=== PATIENT | female | born 1945 | race Caucasian/White ===

== ENCOUNTER 2021-10-04 12:36 | Outpatient (CLI) | payer MEDICARE, BC, SELFPAY | END 2021-10-04 12:37 | disposition home or self-care (01) | PROVIDERS: Visit Provider Family Medicine | DX: H90.3 Sensorineural hearing loss, bilateral (principal) | CPT/HCPCS: 92557; 92567 ==

== ENCOUNTER 2021-10-09 12:36 | Outpatient (CLI) | payer MEDICARE, BC, SELFPAY ==
--- NOTE | 2021-10-10 08:55 | WPDPFTINT ---
PFT Procedure Performed PFT Procedure Performed Plethysmography (Lung Vol) Diffusing Cap (DLCO) Flow Vol Loop Spirometry w/o Bronchodil PFT Interpretation Lung volumes were measured with the body plethysmography method. Lung volumes are unremarkable. Spirometry showed diminished expiratory flow rates and a diminished FEV1 to FVC ratio of 60%, consistent with obstructive airway disease. No post bronchodilator study was carried out. Lung diffusion capacity is moderately reduced at 55% predicted. The flow volume loop is consistent with obstructive airway disease. Impression: Mild obstructive airway disease. Moderately reduced lung diffusion capacity.
== END 2021-10-09 12:37 | disposition home or self-care (01) ==
LOC: ANHPFT 12:40
PROVIDERS: Visit Provider Family Medicine
DX: J44.9 Chronic obstructive pulmonary disease, unspecified (principal); R94.2 Abnormal results of pulmonary function studies
CPT/HCPCS: 94375; 94726; 94729

== ENCOUNTER 2021-11-08 11:00 | Outpatient (RCR) | payer MEDICARE, BC, SELFPAY | END 2022-01-17 23:59 | disposition home or self-care (01) | LOC: ANHAUDASC 11:00 | DX: Z46.1 Encounter for fitting and adjustment of hearing aid (principal) | CPT/HCPCS: 99199; V5261 ==

== ENCOUNTER → 2022-06-14 11:00 | Outpatient (CLI) | payer MEDICARE, BC, SELFPAY ==
--- NOTE | ~2022-06-14 | DEXA_ITS ---
Bone Density Report Name: YADIRA GILBERT Age: 76 Sex: Female Ethnicity: White Date of : 1945 Indication: osteopenia; height loss; postmenopausal Referring Provider: QUE CRISTINA Study: Bone densitometry was performed. Exam Date: June 14, 2022 Accession number: [id number] Bone Density: Region BMD T-score Z-score Classification AP Spine (L1, L4) 1.059 0.2 2.7 Normal Femoral Neck (Left) 0.654 -1.8 0.4 Osteopenia Total Hip (Left) 0.790 -1.2 0.7 Osteopenia Femoral Neck (Right) 0.663 -1.7 0.5 Osteopenia Total Hip (Right) 0.860 -0.7 1.3 Normal Total Hip Mean 0.825 -1.0 1.0 Normal World Health Organization criteria for BMD impression classify patients as: Normal (T-score at or above -1.0), Osteopenia (T-score between -1.0 and -2.5), or Osteoporosis (T-score at or below -2.5). 10-year Fracture Risk(1): Major Osteoporotic Fracture 13% Hip Fracture 3.2% Reported Risk Factors: [place] (), Neck BMD=0.654, BMI=29.0 (1) FRAX(R) Version 3.08. Fracture probability calculated for an untreated patient. Fracture probability may be lower if the patient has received treatment. Previous Exams: Region Exam Age BMD T-score BMD Change BMD Change Date g/cm2 vs Baseline vs Previous AP Spine(L1, L4) 06/14/2022 76 1.059 0.2 -0.042 -0.053* 09/10/2019 73 1.112 0.7 0.011 0.111* 07/06/2014 68 1.001 -0.3 -0.100 -0.010 06/24/2012 66 1.011 -0.2 -0.090 -0.020 05/19/2010 64 1.030 -0.1 -0.071 0.054* 05/07/2008 62 0.977 -0.5 -0.124 -0.004 04/30/2006 60 0.981 -0.5 -0.120 -0.120 05/04/2003 57 1.101 0.6 Total Hip(Left) 06/14/2022 76 0.790 -1.2 -0.077 -0.001 09/10/2019 73 0.790 -1.2 -0.077 0.030* 07/06/2014 68 0.760 -1.5 -0.107 0.004 06/24/2012 66 0.756 -1.5 -0.111 -0.034* 05/19/2010 64 0.791 -1.2 -0.076 0.031* 05/07/2008 62 0.760 -1.5 -0.107 -0.032* 04/30/2006 60 0.792 -1.2 -0.075 -0.075 05/04/2003 57 0.867 -0.6 Total Hip(Right) 06/14/2022 76 0.860 -0.7 0.006 0.014 09/10/2019 73 0.846 -0.8 -0.009 0.025 07/06/2014 68 0.821 -1.0 -0.034 0.056* 06/24/2012 66 0.764 -1.5 -0.090 -0.028* 05/19/2010 64 0.793 -1.2 -0.062 0.037* 05/07/2008 62 0.755 -1.5 -0.099 -0.062* 04/30/2006 60 0.818 -1.0 -0
--- NOTE | ~2022-06-14 | MM_ITS ---
EXAMINATION: MM screening [facility] BI w shamika HISTORY: Screening TECHNIQUE: Craniocaudal and mediolateral oblique 3-D tomosynthesis images were obtained and synthetic 2-D images were generated. CAD analysis was submitted and interpreted. COMPARISON: Comparison to multiple prior studies sequentially, with oldest reviewed study dated 07/06. BREAST PARENCHYMAL COMPOSITION: There are scattered areas of fibroglandular density. FINDINGS: Stable benign-appearing left calcifications in the area of previous benign biopsy. There is no evidence of suspicious mass, calcification, or architectural distortion to suggest malignancy in either breast. There has been no suspicious interval change. IMPRESSION: 1. No mammographic evidence of malignancy. 2. Recommend routine screening mammography in one year. BI-RADS Category 2: Benign finding(s). Reviewed, dictated and finalized at location A.
== END ==
PROVIDERS: PCP Family Medicine; Visit Provider Obstetrics & Gynecology
DX: Z12.31 Encounter for screening mammogram for malignant neoplasm of breast (principal); Z78.0 Asymptomatic menopausal state; M85.852 Other specified disorders of bone density and structure, left thigh; M85.851 Other specified disorders of bone density and structure, right thigh
CPT/HCPCS: 77063; 77067; 77080

== ENCOUNTER 2023-02-06 12:29 | Outpatient (CLI) | payer MEDICARE, BC, SELFPAY ==
[2023-02-06 13:28] LABS: NT Pro B Type Natriuretic Pept 87 pg/mL (19.9-100)
[2023-02-08 12:19] LABS: NIL 0.28 IU/mL; Quantiferon TB Plus, 1T NEGATIVE (NEGATIVE); TB1-NIL 0.05 IU/mL
[2023-02-08 21:14] LABS: Immunoglobulin G, Serum 950 mg/dL (600-1540); Immunoglobulin G1 637 mg/dL (382-929); Immunoglobulin G2 218 mg/dL (241-700); Immunoglobulin G3 68 mg/dL (22-178); Immunoglobulin G4 22.8 mg/dL (4.0-86.0)
--- NOTE | 2023-02-10 12:01 | WPDSIXMINUTE ---
Six Minute Walk Procedure Procedure Performed Pulmonary Stress Test (6 min walk) Six Minute Walk Six Minute Walk: This is a 6 minute walk test. The test was performed and interpreted in accordance with the 2014 ERS/ATS task force guidelines. Findings: The patient's resting room air oxygen saturation measured by pulse oximetry was 94% and heart rate was 82 bpm. Patient ambulated for 579 meters and oxygen saturation remained 89 to 96%. Heart rate at the end of the study was 127 bpm. The patient did not qualify for supplemental oxygen at rest or with ambulation. There are no prior studies for comparison.
--- NOTE | 2023-02-10 12:02 | WPDPFTINT ---
PFT Procedure Performed PFT Procedure Performed Spirometry with Pre/Post Bronchodilator Plethysmography (Lung Vol) Diffusing Cap (DLCO) Flow Vol Loop PFT Interpretation This is a pulmonary function test with pre and post-bronchodilator spirometry, plethysmography and diffusing capacity. The test was performed and results interpreted in accordance with the 2019 and 2005 ATS/ERS Task Force guidelines respectively using the Global Lung Function Initiative-2012 reference equations. Patient demonstrated good effort and cooperation. Reproducibility criteria were met. The quality of the pre bronchodilator spirometry maneuver was Grade A and post bronchodilator spirometry maneuver was Grade A. Findings: Spirometry: there is decreased maximal expiratory airflow at all lung volumes with concave expiratory flow tracing. The contour the inspiratory flow tracing is normal. The pre bronchodilator FVC is 2.38 L, 107% predicted. The pre bronchodilator FEV1 is 1.36 L, 79% predicted. The pre bronchodilator FEV1: FVC ratio is 57%. The post bronchodilator FVC is 2.63 L, representing a 10% increase. The post bronchodilator FEV1 is 1.49 L, representing a 9% increase. The post bronchodilator FEV1: FVC ratio is 57%. Plethysmography: The total lung capacity is 5.02 L, 113% predicted. The functional residual capacity is 3.18 L, 126% predicted. The residual volume is 2.44 L, 114% predicted. Diffusion capacity: The diffusing capacity unadjusted for hemoglobin and carboxyhemoglobin is 21.4, 119% predicted. The diffusing capacity adjusted for alveolar volume is 3.45, 79% predicted. In comparison to previous pulmonary function testing on 10/09/2021 in which only a pre bronchodilator spirometry was performed the pre bronchodilator FVC is unchanged from 2.11 L to 2.38 L. The pre bronchodilator FEV1 is unchanged from 1.26 L to 1.36 L. The total lung capacity is unchanged from 4.98 L to 5.02 L. The functional residual capacity is unchanged from 3.31 L to 3.18 L. The residual volume is unchanged from 2.16 L to 2.44 L. The diffusing capacity unadjusted for hemoglobin and carboxyhemoglobin is increased from 10.0 to 21.4. The diffusing capacity adjusted for alveolar volume is unchanged from 3.15 to 3.45 Impression: There is a mild obstructive abnormality with a normal FEV1 and without significant improvement after inhaling a single dose of albuterol. the lung volumes are normal. The diffusing capacity is normal. In comparison to previous pulmonary function test on 10/09/2021 there has been a greater than anticipated time dependent increase in the diffusing capacity unadjusted for hemoglobin and carboxyhemoglobin with no significant change in the FVC, FEV1, total lung capacity, functional residual capacity, residual volume or diffusing capacity adjusted for alveolar volume. Clinical correlation is recommended.
[2023-02-10 21:04] LABS: Immunoglobulin E 247 kU/L (<=114)
== END 2023-02-06 12:30 | disposition home or self-care (01) ==
LOC: ANHPFT 12:41
PROVIDERS: PCP Family Medicine; Visit Provider Nurse Practitioner
DX: J44.9 Chronic obstructive pulmonary disease, unspecified (principal); R06.09 Other forms of dyspnea; R94.2 Abnormal results of pulmonary function studies
CPT/HCPCS: 36415; 82104; 82784; 82785; 82787; 83880; 86003; 86480; 94060; 94618; 94726; 94729

== ENCOUNTER → 2023-08-27 11:13 | Outpatient (CLI) | payer MEDICARE, BC, SELFPAY ==
--- NOTE | ~2023-08-27 | MM_ITS ---
EXAMINATION: MM screening [facility] BI w shamika HISTORY: Screening TECHNIQUE: Craniocaudal and mediolateral oblique 3-D tomosynthesis images were obtained and synthetic 2-D images were generated. CAD analysis was submitted and interpreted. COMPARISON: Comparison to multiple prior studies sequentially, with oldest reviewed study dated 07/28. BREAST PARENCHYMAL COMPOSITION: Breast composed of scattered areas of fibroglandular density FINDINGS: The right breast is stable without evidence for malignancy. There is developing asymmetry i n the upper outer quadrant of the left breast with possible architectural distortion. There are adjac ent tissue markers. IMPRESSION: 1. Developing asymmetry in the upper outer quadrant of the left breast with possible architectural di stortion. 2. Additional mammographic views and possible breast ultrasound are recommended. BI-RADS Category 0: Incomplete: Needs additional imaging evaluation. Reviewed, dictated and finalized at location A. IMPRESSION: 1. Developing asymmetry in the upper outer quadrant of the left breast with pos sible architectural distortion. 2. Additional mammographic views and possible breast ultrasound are recommended . BI-RADS Category 0: Incomplete: Needs additional imaging evaluation.
== END ==
PROVIDERS: PCP Family Medicine; Visit Provider Obstetrics & Gynecology
DX: Z12.31 Encounter for screening mammogram for malignant neoplasm of breast (principal); R92.8 Other abnormal and inconclusive findings on diagnostic imaging of breast
CPT/HCPCS: 77063; 77067

== ENCOUNTER → 2023-09-23 14:14 | Outpatient (CLI) | payer MEDICARE, BC, SELFPAY ==
--- NOTE | ~2023-09-23 | MM_ITS ---
EXAMINATION: MM diagnostic [facility] LT w shamika HISTORY: Focal asymmetry of the left breast on screening mammogram TECHNIQUE: Additional 3-D tomosynthesis images of the left breast were performed and synthetic 2-D im ages were generated. CAD analysis was submitted and interpreted. COMPARISON: 08/27/2023, 06/14/2022, 08/06/2019,01/02/2017, 12/14/2015 FINDINGS: With spot compression, a previously biopsied, chronic focal asymmetry in the upper outer qu adrant of the left breast with internal calcification has a stable appearance. There has been no susp icious interval change. IMPRESSION: 1. No mammographic evidence of malignancy. 2. Recommend routine screening mammography in one year. BI-RADS Category 2: Benign finding(s). Reviewed, dictated and finalized at location A. D CAPTAIN
== END ==
PROVIDERS: PCP Obstetrics & Gynecology; Visit Provider Family Medicine
DX: R92.8 Other abnormal and inconclusive findings on diagnostic imaging of breast (principal)
CPT/HCPCS: 77061; 77065; G0279

== ENCOUNTER 2025-05-06 12:13 | Outpatient (CLI) | payer MEDICARE, BC, SELFPAY ==
--- NOTE | ~2025-05-06 | MM_ITS ---
EXAMINATION: MM screening [facility] BI w shamika HISTORY: Screening mammogram TECHNIQUE: Craniocaudal and mediolateral oblique 3-D tomosynthesis images were obtained and synthetic 2-D images were generated. CAD analysis was submitted and interpreted. COMPARISON: 09/23/2023, 08/27/2023, 06/14/2022, 08/06/2019 BREAST PARENCHYMAL COMPOSITION:Not Dense. There are scattered areas of fibroglandular density. FINDINGS: Increasing 1.4 cm rounded mass present at the upper, outer left breast, at the site of prio r biopsy, possibly seroma. Stable parenchymal appearance of the right breast. No suspicious pelvic ca lcifications. IMPRESSION: Increasing 1.4 cm round mass at the upper, outer left breast. Ultrasound recommended for further eval uation. BI-RADS Category 0: Incomplete: Needs additional imaging evaluation. Reviewed, dictated and finalized at [facility]. IMPRESSION: Increasing 1.4 cm round mass at the upper, outer left breast. Ultrasound recomm ended for further evaluation. BI-RADS Category 0: Incomplete: Needs additional imaging evaluation.
== END 2025-05-06 12:14 | disposition home or self-care (01) ==
LOC: MICIMG 12:14
PROVIDERS: PCP Obstetrics & Gynecology; Visit Provider Obstetrics & Gynecology
DX: Z12.31 Encounter for screening mammogram for malignant neoplasm of breast (principal); R92.8 Other abnormal and inconclusive findings on diagnostic imaging of breast
CPT/HCPCS: 77063; 77067

== ENCOUNTER 2025-05-06 14:00 | Outpatient (CLI) | payer MEDICARE, BC, SELFPAY | END 2025-05-06 14:01 | disposition home or self-care (01) | LOC: ANHAUDASC 14:00 | PROVIDERS: PCP Obstetrics & Gynecology; Visit Provider Nurse Practitioner Family | DX: H90.3 Sensorineural hearing loss, bilateral (principal) | CPT/HCPCS: 92557; 92567 ==

== ENCOUNTER 2025-06-03 09:16 | Outpatient (CLI) | payer MEDICARE, BC, SELFPAY ==
--- NOTE | ~2025-06-03 | US_ITS ---
Examination: US breast LT limited INDICATION: 79-year old female; BI-RADS 0, callback to evaluate enlarging left breast mass. COMPARISON: Mammogram 05/06/2025 and ultrasound 09/11/2013 TECHNIQUE: Targeted ultrasound of the upper outer left breast was completed. FINDINGS: At 2:00, 5 cm from the nipple there is an heterogeneous hypoechoic mass with irregular margins with i nternal vascularity and surrounding echogenic rim measuring 1.9 x 1.6 x 1 cm which correlates to the enlarging mammographic abnormality of concern. IMPRESSION: Suspicious 1.9 cm heterogeneous hypoechoic mass at 2:00 location in the left breast. RECOMMENDATION: Ultrasound-guided core needle biopsy of left breast mass at 2:00. BI-RADS 4, SUSPICIOUS Reviewed, dictated and finalized at location B. IMPRESSION: Suspicious 1.9 cm heterogeneous hypoechoic mass at 2:00 location in the left br east. RECOMMENDATION: Ultrasound-guided core needle biopsy of left breast mass at 2:00. BI-RADS 4, SUSPICIOUS
== END 2025-06-03 09:17 | disposition home or self-care (01) ==
LOC: MICIMG 09:18
PROVIDERS: PCP Obstetrics & Gynecology; Visit Provider Obstetrics & Gynecology
DX: R92.8 Other abnormal and inconclusive findings on diagnostic imaging of breast (principal)
CPT/HCPCS: 76642

== ENCOUNTER 2025-07-08 07:03 | Outpatient (CLI) | payer MEDICARE, BC, SELFPAY ==
--- NOTE | ~2025-07-08 | MMUS_ITS ---
PROCEDURE: MM post biopsy diagnostic LT, US breast biopsy LT w image CLINICAL HISTORY: 79-year-old female with suspicious left breast mass at 2:00 location presents for ultrasound-guided core needle biopsy procedure. COMPARISON: 06/03/2025 Following informed consent including risks, benefits, and possible complications, the patient was brought to the ultrasound suite. A time-out procedure was performed. A preliminary ultrasound of the left breast was performed, redemonstrating a solid irregular shaped hypoechoic mass at 12:00, 5 cm from the nipple which is the target for the biopsy procedure. The patient was prepped and draped in the usual sterile fashion. 1% lidocaine was instilled into the subcutaneous tissues. 1% lidocaine without epinephrine was injected into the deep tissues just inferior to the lesion. Approximately 15cc lidocaine was administered. A small skin lilibeth was made. Multiple core samples were obtained with a 14-gauge multi pass biopsy needle. A post biopsy butterfly hydromark marker was placed at the biopsy site. Postprocedural mammogram of the left breast in craniocaudal and mediolateral projections reveal the post biopsy butterfly hydromark marker in good position. The patient tolerated the procedure well and was without immediate postprocedural complications. IMPRESSION: Successful ultrasound guided biopsy of left breast mass. A post biopsy butterfly hydromark marker was placed at the biopsy site, which is seen on postprocedural mammogram. The patient tolerated the procedure well without immediate postprocedure complications. The patient was given postprocedural instructions and sent home in stable condition. Reviewed, dictated and finalized at location B. IMPRESSION: Successful ultrasound guided biopsy of left breast mass. A post bio psy butterfly hydromark marker was placed at the biopsy site, which is seen on postprocedural mammogram. The patient tolerated the procedure well without immediate postprocedure compli cations. The patient was given postprocedural instructions and sent home in sta ble condition.
--- NOTE | 2025-07-08 08:38 | S_PTH ---
PATIENT: Tarah Fitzpatrick LOC: [facility] U#:[id number] AGE/SX: 79/F ROOM: RE07/08/[address]: Kimberly Chaudhry MD : 1945 BED: DIS: 07/08/2025 SPEC #: [id number] RECD: 07/08/25 10:13 STATUS: FELICIANO REMia #: [id number] SIMONE: 07/08/25 08:[address]: Kimberly Chaudhry DEPT: [facility] Surgical RECD BY: Briana Onofre ENTERED: 07/08/25 10:14 SP TYPE: Surgical OTHR DR: Carmen Edouard, SECRET CODE EXPERT Tissues: A - Breast Biopsy Procedures: P63 Hematoxylin and Eosin Stain E-Cadherin Gross and Microscopic Level 4 ER-60 RI-60 MIB-60 HER 2-60 CK 5
== END 2025-07-08 07:04 | disposition home or self-care (01) ==
PROVIDERS: PCP Nurse Practitioner Family; Referring Provider Obstetrics & Gynecology; Visit Provider Surgery
DX: N63.21 Unspecified lump in the left breast, upper outer quadrant (principal)
CPT/HCPCS: 19083; 77065; 88305; 88342; 88360; A4648

== ENCOUNTER 2025-07-20 09:28 | Outpatient (CLI) | payer MEDICARE, BC, SELFPAY ==
--- NOTE | ~2025-07-20 | MMUS_ITS ---
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 Patient presents for ultrasound guided Magseed localization of the clip within the Malignant lesion in the 2:00 left breast. After informed consent was obtained, the patient was brought into the ultrasound room. A time-out procedure was performed. Preliminary images of the left breast were obtained to localize the target. A needle was then placed into the breast and ultrasound images were obtained to confirm position of the needle. The Magseed clip deployed immediately adjacent to the biopsy clip. Postprocedure mammogram of the left breast showed the Magseed in good position. IMPRESSION: Successful ultrasound-guided Magseed localization of left breast cancer. The patient tolerated the procedure well with no immediate post procedure complications. Reviewed, dictated and finalized at location B. IMPRESSION: Successful ultrasound-guided Magseed localization of left breast ca ncer. The patient tolerated the procedure well with no immediate post procedur e complications.
--- OUTSIDE RECORDS SUMMARY | 2025-07-20 10:32 | XMS_ITS | Clinical Summary ---
Author Organization [facility] Address [address] [place] [address] Care Team Providers Care Window Machine Operator Name Role Phone Unavailable Primary Care Provider Unavailabl e Immunizations Immunization Administration Dates Next Due (AREXVY)(60 YR UP) RSV, MOOYD MBINANT, PROTEIN SUBUNIT RSVPREF, ADJUVANT RECONSTITUTED, 0.5 ML, PF 07/25/2023 Social History Tobacco Use Types Packs/Day Years Used Date Smoking Tobacco: Never Assessed Comments Unknown Sex and Gender Information Value Date Recorded Sex Assigned at Not on file Legal Sex Female 3:44 PM CDT Gender Identity Not on file Sexual Orientation Not on file Plan of Treatment Health Maintenance Due Date Last Done Comments DTAP/TDAP/TD VACCINES (1 - Tdap) 1964 PNEUMOCOCCAL VACCINE 50+ YEARS (1 of 1 - PCV) 10/13/19 94 ZOSTER VACCINE (1 of 2) 1994 OSTEOPOROSIS SCREENING 2009 INFLUENZA VACCINE (#1) 2025 RSV VACCINE (60+ or ) Completed 07/25/2023 Insurance RX [facility] [employer] [facility]
--- OUTSIDE RECORDS SUMMARY | 2025-07-20 10:32 | XMS_ITS | Patient Health Record ---
Author Organization [facility] [facility] ([id number]) Address [address] [phone] Care Team Providers Care Manager Net Name Role Phone Malcolm Armaanparul Primary Care Provider UnavailArie Nath Unavailable [phone] Alanis Vera Unavailable Unavailable Elie Giron Unavailable [phone] Allergies Allergen (clinical drug ingredient) Drug/Non Drug Allergy documented on EMR Reaction Allergy Type Onset Date Status codeine Codeine vomiting Drug Allergy Active Reason For Referral No Information Medications Medication SIG (Take, Route, Frequency, Duration) Notes Start Date End Date Status FLUTICASONE NASAL 50 mcg/inh 2 spray(s) in each nostril BID; Duration: 30 day(s) Active CETIRIZINE 10 mg 1 tab(s) orally once a day; Duration: 30 days Active ALBUTEROL (EQV-PROAIR HFA) 90 MCG/INH 2 PUFF(S) INHALED EVERY 6 HOURS; Duration: 30 DAYS *Please review for potential replacement for e-prescription and drug interaction check* Active FLUTICASONE NASAL 50 mcg/inh 2 spray(s) in each nostril BID; Duration: 30 day(s) Active Spiriva HandiHaler *Please revie w and pick correct strength-formulat ion from [employer] options. If intended option is not shown, discontinue and re-order from Quick Search* Active CETIRIZINE 10 mg 1 tab(s) orally once a day; Duration: 30 days Active Fluticasone Propionate 50 MCG/ACT 2 spray(s) in each nostril BID; Duration: 30 day(s) Active Cetirizine HCl 10 MG 1 tab(s) orally onc e a day; Duration: 30 days Active Famotidine 40 mg 1 tab(s) orally 30 mins prior to SCIT; Duration: 30 days 08/13/2023 Active TRIAMCINOLONE TOPICAL 0.1% 1 lakesha applied topically 3 times a day; Duration: 7 days Active Triamcinolone Acetonide 0.1 % 1 lakesha applied topically 3 times a day; Duration: 7 days Active TRIAMCINOLONE ACETONIDE TOPICAL 0.1% 1 lakesha applied topically 3 times a day; Duration: 30 days 02/03/2024 Active Triamcinolone Acetonide 0.1 % 1 lakesha applied topically 3 times a day; Duration: 30 days 02/03/2024 Active ATORVASTATIN Active SIT (TRADITIONAL) VARIABLE PER SCHEDULE SC PER SCHEDULE; Duration: TO BE DETERMINED *Please review for potential replacement for e-prescription and drug interaction check* 08/13/2023 Active SERTRALINE Active NASAL WASHES N/A DIRECTED INTRANASALLY NEEDED; Duration: 30 *Please review for potential replacement for e-prescription and drug interaction check* Active SPIRIVA Active EPINEPHRINE AUTO-INJECTOR 0.3 MG DIRECTED INTRAMUSCULARLY ONCE; Duration: 30 DAY(S) *Please review for potential replacement for e-prescription and drug interaction check* 06/18/2023 Active FAMOTIDINE 40 mg 1 tab(s) orally 30 mins prior to SCIT; Duration: 30 days 08/13/2023 Active Atorvastatin Calcium *Please rev iew and pick correct strength-formulat ion from [employer] options. If intended option is not shown, discontinue and re-order from Quick Search* Active Sertraline HCl *Please review and pick correct strength-formulat ion from [employer] options. If intended option is not shown, discontinue and re-order from Quick Search* Active FAMOTIDINE 40 mg 1 tab(s) orally 30 mins prior to SCIT; Duration: 30 days 08/13/2023 Active Social History Tobacco Use: Social History Observation Description Date Details (start date - stop date) Former Smoker NA - NA Smoking Smart Form: Question Answer Notes Are you a: former smoker How long it has been since you last smoked? > 10 years Problems Problem Type SNOMED Code ICD Code Onset Dates Problem Status W/U Status Risk Notes Problem Chronic allergic conjunctivitis (50299425) Other chronic allergic conjunctivitis (H10.45) Active confirmed Problem Allergic rhinitis caused by pollen (disorder) (26855781) Allergic rhinitis due to pollen (J30.1) Active confirmed Problem Allergic rhinitis caused by animal hair and dander (847872724300606) Allergic rhinitis due to animal (cat) (dog) hair and dander (J30.81) Active confirmed Problem Allergic rhinitis (45232846) Other allergic rhinitis (J30.89) Active confirmed Problem Chronic obstructive pulmonary disease (79619480) Chronic obstructive pulmonary disease, unspecified (J44.9) Active confirmed Problem Allergic rhinitis caused by pollen (disorder) (79638758) Allergic rhinitis due to pollen (J30.1) Active confirmed Problem Allergic rhinitis caused by animal hair and dander (537792211783371) Allergic rhinitis due to animal (cat) (dog) hair and dander (J30.81) Active confirmed Problem Allergic rhinitis (84010922) Other allergic rhinitis (J30.89) Active confirmed Problem Chronic allergic conjunctivitis (67193017) Other chronic allergic conjunctivitis (H10.45) Active confirmed Problem Chronic cough (40966664) Chronic cough (R05.3) Active confirmed Encounters Encounter Location Date Provider Diagnosis [facility] [address] [place] [phone] 07/21/2024 lEie Giron Allergic rhinitis du e to pollen J30.1 ; Other allergic rhinitis J30.89 ; Allergic rhinitis due to animal (cat) (dog) hair and dander J30.81 and Other chronic allergic conjunctivitis H10.45 [facility] [address] [place] [phone] 08/18/2024 Elie Giron Allergic rhinitis du e to pollen J30.1 ; Other allergic rhinitis J30.89 ; Allergic rhinitis due to animal (cat) (dog) hair and dander J30.81 and Other chronic allergic conjunctivitis H10.45 [facility] [address] [place] [phone] 09/15/2024 Elie Giron Allergic rhinitis du e to pollen J30.1 ; Other allergic rhinitis J30.89 ; Allergic rhinitis due to animal (cat) (dog) hair and dander J30.81 and Other chronic allergic conjunctivitis H10.45 [facility] [address] [place] [phone] 2024 Elie Mack Allergic rhinitis du e to pollen J30.1 ; Other allergic rhinitis J30.89 ; Allergic rhinitis due to animal (cat) (dog) hair and dander J30.81 and Other chronic allergic conjunctivitis H10.45 [facility] [address] [place] [phone] 11/24/2024 Elie Giron Allergic rhinitis du e to pollen J30.1 ; Other allergic rhinitis J30.89 ; Allergic rhinitis due to animal (cat) (dog) hair and dander J30.81 and Other chronic allergic conjunctivitis H10.45 [facility] [address] [place] [phone] 12/15/2024 Eliebryce Giron Allergic rhinitis du e to pollen J30.1 ; Other allergic rhinitis J30.89 ; Allergic rhinitis due to animal (cat) (dog) hair and dander J30.81 and Other chronic allergic conjunctivitis H10.45 [facility] [address] [place] [phone] 12/24/2024 Eliebryce Giron Allergic rhinitis du e to pollen J30.1 ; Other allergic rhinitis J30.89 ; Allergic rhinitis due to animal (cat) (dog) hair and dander J30.81 and Other chronic allergic conjunctivitis H10.45 [facility] [address] [place] [phone] 12/31/2024 Eliebryce Giron Allergic rhinitis du e to pollen J30.1 ; Other allergic rhinitis J30.89 ; Allergic rhinitis due to animal (cat) (dog) hair and dander J30.81 and Other chronic allergic conjunctivitis H10.45 [facility] [address] [place] [phone] 01/28/2025 Elie Giron Allergic rhinitis du e to pollen J30.1 ; Other allergic rhinitis J30.89 ; Allergic rhinitis due to animal (cat) (dog) hair and dander J30.81 and Other chronic allergic conjunctivitis H10.45 [facility] [address] [place] [phone] 02/25/2025 Elie Giron Allergic rhinitis du e to pollen J30.1 ; Other allergic rhinitis J30.89 ; Allergic rhinitis due to animal (cat) (dog) hair and dander J30.81 and Other chronic allergic conjunctivitis H10.45 [facility] [address] [place] [phone] 03/25/2025 Elie Giron Allergic rhinitis du e to pollen J30.1 ; Other allergic rhinitis J30.89 ; Allergic rhinitis due to animal (cat) (dog) hair and dander J30.81 and Other chronic allergic conjunctivitis H10.45 [facility] [address] [place] [phone] 04/22/2025 Elie Giron Allergic rhinitis du e to pollen J30.1 ; Other allergic rhinitis J30.89 ; Allergic rhinitis due to animal (cat) (dog) hair and dander J30.81 and Other chronic allergic conjunctivitis H10.45 [facility] [address] [place] [phone] 05/20/2025 Elie Giron Allergic rhinitis du e to pollen J30.1 ; Other allergic rhinitis J30.89 ; Allergic rhinitis due to animal (cat) (dog) hair and dander J30.81 and Other chronic allergic conjunctivitis H10.45 [facility] [address] [place] [phone] 06/17/2025 Elie Giron Allergic rhinitis du e to pollen J30.1 ; Other allergic rhinitis J30.89 ; Allergic rhinitis due to animal (cat) (dog) hair and dander J30.81 and Other chronic allergic conjunctivitis H10.45 Assessments Encounter Date Diagnosis (ICD Code) Assessment Notes Treatment Notes Treatment Clinical Notes Section Notes 2024 Allergic rhinitis due to pollen (ICD-10 - J30.1) 2024 Other allergic rhinitis (ICD-10 - J30.89) 11/24/2024 Allergic rhinitis due to pollen (ICD-10 - J30.1) 11/24/2024 Other allergic rhinitis (ICD-10 - J30.89) 12/24/2024 Allergic rhinitis due to pollen (ICD-10 - J30.1) 12/24/2024 Other allergic rhinitis (ICD-10 - J30.89) 03/25/2025 Allergic rhinitis due to pollen (ICD-10 - J30.1) 03/25/2025 Other allergic rhinitis (ICD-10 - J30.89) 04/22/2025 Allergic rhinitis due to pollen (ICD-10 - J30.1) 04/22/2025 Other allergic rhinitis (ICD-10 - J30.89) 05/20/2025 Allergic rhinitis due to pollen (ICD-10 - J30.1) 05/20/2025 Other allergic rhinitis (ICD-10 - J30.89) 06/17/2025 Allergic rhinitis due to pollen (ICD-10 - J30.1) 06/17/2025 Other allergic rhinitis (ICD-10 - J30.89) 01/28/2025 Allergic rhinitis due to pollen (ICD-10 - J30.1) 01/28/2025 Other allergic rhinitis (ICD-10 - J30.89) 12/31/2024 Allergic rhinitis due to pollen (ICD-10 - J30.1) 12/31/2024 Other allergic rhinitis (ICD-10 - J30.89) 12/15/2024 Allergic rhinitis due to pollen (ICD-10 - J30.1) 12/15/2024 Other allergic rhinitis (ICD-10 - J30.89) 09/15/2024 Allergic rhinitis due to pollen (ICD-10 - J30.1) 09/15/2024 Other allergic rhinitis (ICD-10 - J30.89) 08/18/2024 Allergic rhinitis due to pollen (ICD-10 - J30.1) 08/18/2024 Other allergic rhinitis (ICD-10 - J30.89) 07/21/2024 Allergic rhinitis due to pollen (ICD-10 - J30.1) 07/21/2024 Other allergic rhinitis (ICD-10 - J30.89) 02/25/2025 Allergic rhinitis due to pollen (ICD-10 - J30.1) 02/25/2025 Other allergic rhinitis (ICD-10 - J30.89) 02/25/2025 Allergic rhinitis due to animal (cat) (dog) hair and dander (ICD-10 - J30.81) 07/21/2024 Allergic rhinitis due to animal (cat) (dog) hair and dander (ICD-10 - J30.81) 08/18/2024 Allergic rhinitis due to animal (cat) (dog) hair and dander (ICD-10 - J30.81) 09/15/2024 Allergic rhinitis due to animal (cat) (dog) hair and dander (ICD-10 - J30.81) 12/15/2024 Allergic rhinitis due to animal (cat) (dog) hair and dander (ICD-10 - J30.81) 12/31/2024 Allergic rhinitis due to animal (cat) (dog) hair and dander (ICD-10 - J30.81) 01/28/2025 Allergic rhinitis due to animal (cat) (dog) hair and dander (ICD-10 - J30.81) 06/17/2025 Allergic rhinitis due to animal (cat) (dog) hair and dander (ICD-10 - J30.81) 05/20/2025 Allergic rhinitis due to animal (cat) (dog) hair and dander (ICD-10 - J30.81) 04/22/2025 Allergic rhinitis due to animal (cat) (dog) hair and dander (ICD-10 - J30.81) 03/25/2025 Allergic rhinitis due to animal (cat) (dog) hair and dander (ICD-10 - J30.81) 12/24/2024 Allergic rhinitis due to animal (cat) (dog) hair and dander (ICD-10 - J30.81) 11/24/2024 Allergic rhinitis due to animal (cat) (dog) hair and dander (ICD-10 - J30.81) 2024 Allergic rhinitis due to animal (cat) (dog) hair and dander (ICD-10 - J30.81) 2024 Other chronic allergic conjunctivitis (ICD-10 - H10.45) 11/24/2024 Other chronic allergic conjunctivitis (ICD-10 - H10.45) 12/24/2024 Other chronic allergic conjunctivitis (ICD-10 - H10.45) 03/25/2025 Other chronic allergic conjunctivitis (ICD-10 - H10.45) 04/22/2025 Other chronic allergic conjunctivitis (ICD-10 - H10.45) 05/20/2025 Other chronic allergic conjunctivitis (ICD-10 - H10.45) 06/17/2025 Other chronic allergic conjunctivitis (ICD-10 - H10.45) 01/28/2025 Other chronic allergic conjunctivitis (ICD-10 - H10.45) 12/31/2024 Other chronic allergic conjunctivitis (ICD-10 - H10.45) 12/15/2024 Other chronic allergic conjunctivitis (ICD-10 - H10.45) 09/15/2024 Other chronic allergic conjunctivitis (ICD-10 - H10.45) 08/18/2024 Other chronic allergic conjunctivitis (ICD-10 - H10.45) 07/21/2024 Other chronic allergic conjunctivitis (ICD-10 - H10.45) 02/25/2025 Other chronic allergic conjunctivitis (ICD-10 - H10.45) Plan Of Treatment Next Appt Details Provider Name:Elie Giron , 07/20/2025 01:50:00 PM, [address] [facility], [address], [address], Provider Name:Elie Giron , 08/19/2025 12:30:00 PM, [address] [employer], [address], [address], Insurance Providers Payer Name Payer Address Payer Phone Subscriber Number Group Number Insured Name Patient Relationship to Insured Coverage Start Date Coverage End Date [employer] (Medicare) Attention Claims [address] [facility] [place] [address] [id number] Tarah Fitzpatrick Self - patient is the insured [facility] [address] [place] [address] [id number] Tarah Fitzpatrick Self - patient is the insured Medical (General) History Medical History History ICD Code Hypercholesterolemia COPD Surgical History Surgery Date(Month/Year) Hospitalization History Reason Date(Month/Year)
--- OUTSIDE RECORDS SUMMARY | 2025-07-20 10:32 | XMS_ITS | Clinical Summary ---
Author Organization [facility] Building [facility] Address [address] [place] [address] Care Team Providers Care Drug Safety Assistant Name Role Phone Leif Haddad MD Unavailable [phone] Shemar Dobbins MD Unavailable Carmen Edouard NP Primary Care Provider [phone] Allergies Active Allergy Reactions Criticality Noted Date Comments Codeine Other (See comments) Low 02/04/2024 Noted from H&P sent from PCM office Medications triamcinolone (KENALOG) 0.1 % cream Apply 1 g topically every 8 hours 02/03/20 24 Active cetirizine 10 mg capsule Take 1 tablet by mouth daily Active multivitamin tabletIndications:Vitam in Deficiency Prevention Take 1 tablet by mouth Active omega 2-smw-giz-fish oil 1,000 mg (120 mg-180 mg) capsule Take 1 capsule (1,000 mg total) by mouth daily Active calcium carbonate (TUMS) 1,000 mg (400 mg elemental) tablet,chewable 1,100 mg Acti ve cholecalciferol, vitamin D3, 1,000 unit tablet,chewable Take 1 tablet/chew tab by mouth daily Active inax-rlopav-ktaohlvj-D3 -C-Mn 500-400-667 mg-mg-unit capsule Take 1 tablet by mouth daily Active coenzyme Q10 100 mg capsule Take 1 capsule (100 mg total) by mouth daily Active biotin 1 mg capsule Take by mouth Active polycarbophil (FIBERCON) 625 mg tablet Take 2 tablets (1,250 mg total) by mouth daily Active vit C,T-Zc-eikft-lutein-dipak sumaya 250-90-40-1 mg capsule Take by mouth Active docusate sodium (COLACE) 100 mg capsuleIndications:cons tipation Take 1 capsule (100 mg total) by mouth 2 (two) times a day Active albuterol HFA (PROVENTIL HFA,VENTOLIN HFA,PROAIR HFA) 90 mcg/actuation inhaler Inhale 2 puffs every 6 (six) hours as needed for wheezing or shortness of breath 1 each 09/17/20 24 Active sertraline (ZOLOFT) 100 mg tabletIndications:Anxie ty Take 1.5 tablets (150 mg total) by mouth daily 150 tablet 3 01/27/20 25 Active atorvastatin (LIPITOR) 10 mg tabletIndications:Pure hypercholesterolemia Take 1 tablet (10 mg total) by mouth daily 100 tablet 01/27/20 25 Active montelukast (SINGULAIR) 10 mg tablet Take 1 tablet (10 mg total) by mouth nightly 30 tablet 03/18/20 25 026 Active albuterol HFA (PROVENTIL HFA,VENTOLIN HFA,PROAIR HFA) 90 mcg/actuation inhaler Inhale 2 puffs every 6 (six) hours as needed for wheezing or shortness of breath 1 each 03/18/20 25 Active Spiriva Respimat 2.5 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 Overhaul marianna obstructive pulmonary disease, unspecified COPD type (HCC) Inhale 2 puffs daily 60 each 03/18/20 25 Active Active Problems Problem Noted Date Diagnosed Date Chronic obstructive pulmonary disease 06/15/2024 Assessment & Plan (03/18/2025 3:24 PM CDT): She likely has overlap syndrome with moderate eosinophilia, however she did not have clinical benefit from Arnuity Ellipta Continue Spiriva Respimat 2.5 once daily at the same time Albuterol 2 puffs every 4-6 hours as needed only, discussed indications for use Previous walk testing in 2022 with lowest oxygen saturation of 89%, we have discussed repeating her testing if alternate therapies fail to improve her shortness of breath. We have discussed signs and symptoms that would require earlier evaluation or change to her plan of care I still have a low threshold to check an echocardiogram if her dyspnea does not improve Assessment & Plan (01/26/2025 2:28 PM CDT): Stable. Follows with pulmonology. Continues on spiriva, and albuterol. 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 Giron Continue cetirizine I will add montelukast 10 mg daily at the same time Assessment & Plan (09/18/2024 10:34 AM BOX ANNEALER): Currently on SCIT therapy Continue to follow with silk screen operator Continue cetirizine, we discussed the addition of montelukast in the future Assessment & Plan (06/15/2024 3:22 PM CDT): Currently on SCIT therapy Suspicions for overlap syndrome Addition of ICS as above Cigarette nicotine dependence in remission 06/15 Assessment & Plan (09/18/2024 10:33 AM BOX ANNEALER): Last CT chest in March of 2023 with no worrisome nodules She does not qualify for lung cancer screening Assessment & Plan (06/15/2024 3:23 PM CDT): Last CT chest with no worrisome nodules She does not qualify for lung cancer screening Anxiety 06/03/2024 Overview (06/03/2024): after husbands passing in 05/24 Assessment & Plan (01/26/2025 2:26 PM CDT): Stable. Continue sertraline 150mg once daily. Assessment & Plan (06/03/2024 7:19 PM CDT): Chronic. Has been relatively controlled with the sertraline 150 mg daily. I think it is reasonable to attempt to wean this to 100 mg daily since she is doing very well. Patient is willing to consider. She can try decreasing the dose. She does not tolerate should go back to full dose. Brief supportive counseling was provided. Monitor Bilateral hearing loss 06/03/2024 Assessment & Plan (06/03/2024 7:19 PM CDT): Chronic. Uses hearing aids. No signs of wax impaction on examination. Monitor Hyperlipidemia 06/03/2024 Assessment & Plan (01/26/2025 2:29 PM CDT): Lipid abnormalities are stable, reviewed previous lipid levels in [facility]. Continue statin therapy. Lipitor (atorvastatin) Order for lipid panel was given today to be obtained. Pt voiced understanding of lab drawn and continuation of current medication regimen. Assessment & Plan (06/03/2024 7:19 PM CDT): Chronic. On atorvastatin. Control uncertain. Patient believes her last set of labs may have been approaching 2 years ago but she is not positive. We will try to get records. Check updated cholesterol level. Denies history of clinically significant ASCVD. When she hits age 79 she has not had clinically significant ASCVD we may be able to consider weaning off medication as long as we discuss risk versus benefits Family history of colon cancer 06/03/2024 Nocturnal hypoxia 06/03/2024 Assessment & Plan (09/18/2024 10:34 AM BOX ANNEALER): Continue supplemental oxygen at 2 liters with all sleep Previously negative study for YAIR. We have discussed the risks of hypoxia Assessment & Plan (06/15/2024 3:18 PM CDT): Continue supplemental oxygen at 2 liters with all sleep Previously negative study for YAIR. We have discussed the risks of hypoxia Assessment & Plan (06/03/2024 7:22 PM CDT): Chronic. On supplemental oxygen 2 L per minute nightly. Denies need for CPAP. Continue Arthralgia of left knee 11/28/2023 Assessment & Plan (06/03/2024 7:19 PM CDT): Chronic. Has been struggling intermittently. Has been working with the orthopedic surgery. Had injection several months ago. She is considering returning to the specialist for repeat evaluation Resolved Problems Problem Noted Date Diagnosed Date Resolved Date Centrilobular emphysema 06/03/2024 08/0 03/2024 Assessment & Plan (06/03/2024 7:21 PM CDT): Chronic. Symptoms are relatively controlled with Spiriva. Continue. Continue p.r.n. albuterol. Continue to obtain from smoking Immunizations Immunization Administration Dates Next Due Influenza, Quadrivalent, Hig h Dose, Preservative Free, Intrr 08/15/2023,08/01/2022,07/25/2021 Influenza, Trivalent, Adjuva nted, Intramuscular 08/06/2024 Influenza, Trivalent, High D ose, Split, Preservative Free, Intramuscular 08/11/2019,08/19/2018,08/13/2016,08/29 Influenza, Unspecified 08/13/2024 Pneumococcal Conjugate PCV 13 09/04/2021 Pneumococcal Polysaccharide PPV23 09/04/2022 RSV Vaccine, Pref, Recombina nt, Subunit, Adjuvanted, PF, IM (Arexvy) 07/25/2023 ZOSTER Recombinant 02/15/2022,09/04/2021 Surgical History Surgery Date Site/Laterality Comments NO PAST SURGERIES CATARACT EXTRACTION 2021 BREAST BIOPSY 07/08/2025 Left Medical History Medical History Date Comments Hyperlipidemia Anxiety after husbands p assing in 05/2014 Hearing loss Pulmonary emphysema (HCC) COPD (chronic obstructive pu lmonary disease) Arthritis Abnormal mammogram 08/27/2023 Allergy to environmental factors 03/06/2023 Macular degeneration Multiple environmental allergies 06/15/2024 Cigarette nicotine dependenc e in remission 06/15/2024 Depression Cataract 2020 Emphysema of lung Chronic bronchitis (HCC) Family History Medical History Relation Name Comments Cancer Brother Melanoma Brother Emphysema Father Heart disease Father Hypertension Maternal Grandmother Stroke Maternal Grandmother Colon cancer Mother Heart disease Mother Relation Name Status Comments Brother Father Maternal Grandmother Mother Social History Tobacco Use Types Packs/Day Years Used Date Smoking Tobacco: Former Cigarettes 1.5 40 0 11/11/1965 - 2005 Smokeless Tobacco: Never Tobacco Cessation:Counseling Given: Not Answered AUDIT-C Answer Date Recorded Q1: How often do you have a drink containing alc ohol? 2-3 times a week 06/03/2024 Q2: How many drinks containi ng alcohol do you have on a typical day when you are drinking? 1 or 2 06/03/2024 Q3: How often do you have si x or more drinks on one occasion? Weekly 06/03/2024 PHQ-2 Answer Date Recorded PHQ-2 Total Score (If total score is 3 or more points, staff should administer the PHQ-9) 0 01/26/2025 Comments No Sex and Gender Information Value Date Recorded Sex Assigned at Not on file Legal Sex Female 1:07 AM BOX ANNEALER Gender Identity Not on file Sexual Orientation Not on file Obstetrics History Last Filed Vital Signs Vital Sign Reading Time Taken Comments Blood Pressure 132/60 03/18/2025 1:26 PM CDT Pulse 75 03/18/2025 1:26 PM CDT Temperature 36.7 C (98.1 F) 03/18/2025 1:26 PM CDT Respiratory Rate 18 01/26/2025 2:16 PM CDT Oxygen Saturation 92% 03/18/2025 1:26 PM CDT Inhaled Oxygen Concentration - - Weight 71.4 kg (157 lb 6.4 oz) 03/18/2025 1:26 P M CDT Height 152.4 cm (5') 03/18/2025 1:26 PM CDT Body Mass Index 30.74 03/18/2025 1:26 PM CDT Plan of Treatment Health Maintenance Due Date Last Done Comments DTaP/Tdap/Td Vaccine (1 - Tdap) 1956 Hepatitis B Screening 1962 Well Visit 65+ 2009 Covid-19 Vaccine (2023-2 5 season) 2025 08/06/2024, 08/15/2023, 08/01/2022, Additional history exists Influenza Vaccine (#1) 2025 , 08/06/2024, 08/15/2023, Additional history exists Depression Screening 01/26/2026 01/26/2025, 06/03/20 Fall Risk Assessment 01/26/2026 01/26/2025, 06/03/20 Osteoporosis Screening-Bone Density Scan 06/15/2026 06/15/2024, 06/14/2022 Zoster Vaccine Completed 02/15/2022, 09/04/2021 Pneumococcal vaccine 65+ Completed 09/04/2022, 08/12 Procedures Procedure Name Priority Date/Time Associated Diagnosis Comments US GUIDED BREAST BIOPSY LEFT Schedule Routine, Read Routine (OP Routine) 07/08/2025 3:46 PM CDT DEXA SCAN Routine 06/15/2024 1:42 PM CDT from Last 3 Months or Most Recently Relevant to Health Maintenance Results * US Guided Breast Biopsy Left (07/08/2025 3:46 PM CDT) Anatomical Region Laterality Modality Breast Left Mammography us Historical Provider MD LOU MAMMO PROCEDURES Autumn l Result * DEXA SCAN (06/15/2024 1:42 PM CDT) Scribed Deca Scan Abnormal us Historical Provider HEALTH MAINTENANCE Final Result from Last 3 Months or Most Recently Relevant to Health Maintenance Insurance MEDICARE [facility] [employer] Care Teams Drug Safety Assistant Relationship Specialty Start Date End Date Carmen Edouard NP [address] [facility] [address] [place], [place] [id number] PCP - General Family Medicine 01/26/25 Leif Haddad MD [address] [facility] [address] [facility] [address] [place] [address] Referring Physician Obstetrics and Gynecology 06/03/24 Shemar Dobbins MD [address] [place] [id number] Consulting Physician Pulmonary Disease 06/03/24
== END 2025-07-20 09:29 | disposition home or self-care (01) ==
PROVIDERS: PCP Nurse Practitioner Family; Visit Provider Surgery
DX: C50.912 Malignant neoplasm of unspecified site of left female breast (principal)
CPT/HCPCS: 19285; 77065; A4648

== ENCOUNTER 2025-07-29 11:35 | Outpatient (CLI) | payer MEDICARE, BC, SELFPAY ==
--- NOTE | 2025-07-29 11:55 | ECG_ITS ---
Test Date: 2025-07-29 12:00:33 Measurements Intervals [place] Rate: 64 P: 59 CT: 170 QRS: 38 QRSD: 81 T: 61 QT: 369 QTc: 381 Interpretive Statements SINUS RHYTHM POSSIBLE LEFT ATRIAL ENLARGEMENT [-0.1mV P WAVE IN V1/V2] OTHERWISE NORMAL ECG WARNING: DATA QUALITY MAY AFFECT INTERPRETATION No previous ECG available for comparison Electronically Signed On 07-29-2025 12:36:42 CDT by Ben Barger M.D.
--- OUTSIDE RECORDS SUMMARY | 2025-07-29 11:59 | XMS_ITS | Clinical Summary ---
Author Organization [facility] Medical Office Building B Address [address] [place] [address] Care Team Providers Care Triage Specialist Name Role Phone Leif Haddad MD Unavailable Shemar Dobbins MD Unavailable Carmen Edouard NP Primary Care Provider [phone] Allergies Active Allergy Reactions Criticality Noted Date Comments Codeine Other (See comments) Low 02/04/2024 Noted from H&P sent from PCM office Medications triamcinolone (KENALOG) 0.1 % cream Apply 1 g topically every 8 hours 02/03/20 24 Active cetirizine 10 mg capsule Take 1 tablet by mouth daily Active multivitamin tabletIndications:Vitam in Deficiency Prevention Take 1 tablet by mouth Active omega 3-gdd-pnz-fish oil 1,000 mg (120 mg-180 mg) capsule Take 1 capsule (1,000 mg total) by mouth daily Active calcium carbonate (TUMS) 1,000 mg (400 mg elemental) tablet,chewable 1,100 mg Acti ve cholecalciferol, vitamin D3, 1,000 unit tablet,chewable Take 1 tablet/chew tab by mouth daily Active nlbc-qeeqzl-uobacmmo-D3 -C-Mn 500-400-667 mg-mg-unit capsule Take 1 tablet by mouth daily Active coenzyme Q10 100 mg capsule Take 1 capsule (100 mg total) by mouth daily Active biotin 1 mg capsule Take by mouth Active polycarbophil (FIBERCON) 625 mg tablet Take 2 tablets (1,250 mg total) by mouth daily Active vit C,M-Ut-pllzx-lutein-dipak sumaya 250-90-40-1 mg capsule Take by mouth [...] 03/18/20 25 Active Spiriva Respimat 2.5 mcg/actuation inhalerIndications:Administration Professional marianna obstructive pulmonary disease, unspecified COPD type [...] albuterol. Assessment & Plan (09/18/2024 10:35 AM CREATIVE/ART DIRECTOR): Possible overlap syndrome with moderate eosinophilia, she [...] therapy every month Continue to follow with director business intelligence Dr. Giron Continue cetirizine I will add montelukast 10 mg daily at the same time Assessment & Plan (09/18/2024 10:34 AM CREATIVE/ART DIRECTOR): Currently on SCIT therapy Continue to follow with director business intelligence Continue cetirizine, we discussed the addition of montelukast in the future Assessment & Plan (06/15/2024 3:22 PM CDT): Currently on SCIT therapy Suspicions for overlap syndrome Addition of ICS as above Cigarette nicotine dependence in remission 06/15 Assessment & Plan (09/18/2024 10:33 AM CREATIVE/ART DIRECTOR): Last CT chest in March of 2023 [...] are stable, reviewed previous lipid levels in [facility]. Continue statin therapy. Lipitor (atorvastatin) Order [...] 06/03/2024 Assessment & Plan (09/18/2024 10:34 AM CREATIVE/ART DIRECTOR): Continue supplemental oxygen at 2 liters with [...] on file Legal Sex Female 1:07 AM CREATIVE/ART DIRECTOR Gender Identity Not on file Sexual Orientation [...] Recently Relevant to Health Maintenance Insurance MEDICARE [facility] FEDERAL Care Teams Triage Specialist Relationship Specialty Start Date End Date Carmen Edouard NP [address] [facility] [address] [place], [place] [phone] PCP - General Family Medicine 01/26/25 Leif Haddad MD [address] [facility] [address] [facility] [address] [place] [address] Referring Physician Obstetrics and Gynecology 06/03/24 Shemar Dobbins MD [address] [place] [id number] Consulting Physician Pulmonary Disease 06/03/24
--- OUTSIDE RECORDS SUMMARY | 2025-07-29 11:59 | XMS_ITS | Clinical Summary ---
Author Organization [facility] Address [address] [place] [address] Care Team Providers Care Inspector [employer] Name Role Phone Unavailable Primary Care Provider Unavailabl e Encounters Date Type Department Care Team Description 07/23/2025 Abstract [facility] Oncology and Hematology [facility] [address] [facility] [facility] [address] [place] [address] Rakesh Núñez MD from Last 3 Months Immunizations Immunization Administration Dates Next Due (AREXVY)(60 YR UP) RSV, MOODY MBINANT, PROTEIN SUBUNIT RSVPREF, ADJUVANT RECONSTITUTED, 0.5 ML, PF 07/25/2023 Social History Tobacco Use Types Packs/Day Years Used Date Smoking Tobacco: Never Assessed Comments Unknown Sex and Gender Information Value Date Recorded Sex Assigned at Not on file Legal Sex Female 3:44 PM CDT Gender Identity Not on file Sexual Orientation Not on file Plan of Treatment Upcoming Encounters Date Type Department Care Team (Late st Contact Info) Description 08/04/2025 3:00 PM CDT Office Visit [facility] Oncology [facility] [address] [place] [address] Rakesh Núñez MD [address] [facility] [address] [place] [address] Health Maintenance Due Date Last Done Comments DTAP/TDAP/TD VACCINES (1 - Tdap) 1964 PNEUMOCOCCAL VACCINE 50+ YEARS (1 of 1 - PCV) 10/13/19 94 ZOSTER VACCINE (1 of 2) 1994 OSTEOPOROSIS SCREENING 2009 INFLUENZA VACCINE (#1) 2025 RSV VACCINE (60+ or ) Completed 07/25/2023 Insurance RX [facility] [employer] [facility] [employer] MEDICARE PART A AND B [facility] FEDERAL
== END 2025-07-29 11:36 | disposition home or self-care (01) ==
PROVIDERS: PCP Nurse Practitioner Family; Visit Provider Surgery
DX: E78.00 Pure hypercholesterolemia, unspecified (principal); Z01.818 Encounter for other preprocedural examination
CPT/HCPCS: 93005

== ENCOUNTER 2025-08-03 01:58 | Day surgery (SDC) | payer MEDICARE, BC, SELFPAY ==
[2025-07-26 15:59] VITALS: BMI 30.1
--- NOTE | 2025-07-26 16:23 | PC.NURSE ---
Report to the Outpatient Waiting Room, entrance under the green pavilion located off [facility], at time __8:00AM___ on date ___08/03/25__. Planned Procedure Time: __10:00AM____.? Time changes happen often and if your time is changed the preop area will call you the afternoon before. - You and your visitor will be asked to self-screen and do not enter if you have any COVID symptoms. Please call surgeon if you need to reschedule. - A mask is optional within the hospital at this time. Patients may have clear liquids (water, carbonated beverages, clear teas, apple juice) until 3 hours prior to surgery (7:00am) with a maximum of 20 ounces. - No food from midnight until time of surgery and no smoking, or chewing tobacco (or any form of nicotine). No chewing gum, candy or mints. Take only the following medications with a SIP of water on the morning of surgery: ___SERTRALINE. MAY USE ALBUTEROL INHALER NEEDED. DO NOT STOP ANY OF YOUR OTHER PRESCRIPTION MEDICATIONS PRIOR TO SURGERY EXCEPT THE FOLLOWING Hold all vitamins and supplements for 3 days per anesthesiologist.- LAST DOSE 07/30/25 Medications to discontinue per physician NONE Date to take last dose Please no make-up, nail citizen of [place], hairspray, perfume, deodorant, or body powder the day of surgery.? No jewelry (including any body piercings) or valuables the day of surgery, leave them at home.? Please take a shower or bath the night before, or the morning of, surgery with an antibacterial soap.? Wear comfortable, loose fitting clothing.? - Jewelry must be removed prior to entering the operating room.? Rings and piercings that are not removed may be cut off. - The hospital will not accept responsibility for valuables.? - Please leave all valuables, including medications, at home the day of surgery. If you are going home after surgery, a licensed bus driver school must drive you home.? - NO public transportation without another adult if you receive anesthesia. - We recommend that an adult stay with you for 24 hours following discharge. - We also recommend that you do not drive, make important decision, drink alcoholic beverages, or take any drugs that were not prescribed by your health care provider for at least 24 hours after your discharge time. Follow any additional instructions given to you from your surgeon. Telephone instructions given to ___PATIENT and asked if any additional questions and then verbalized understanding. Patient advised to call surgeon office or pre surgery nurse liaison [phone] if any additional questions.
[2025-08-03] VITALS (10 sets, daily range): BP systolic 120–157; BP diastolic 56–90; PULSE 72–82; RESP 12–20; TEMP 36.4–36.7; O2SAT 91–100
--- NOTE | ~2025-08-03 | NM_ITS ---
EXAMINATION: NM sentinel node inject only DATE: 08/03/2025 10:14 INDICATION: Left breast cancer TECHNIQUE: 1000 093 mCi Tc-99m Lymphoseek was injected at the left breast by Dr. Chaudhry. No images were obtained. FINDINGS/IMPRESSION: Left breast sentinel lymph node radiopharmaceutical injection. Reviewed, dictated and finalized at location A.
--- NOTE | ~2025-08-03 | MM_ITS ---
Clinical history:Specimen EXAM:Faxitron breast specimen TECHNIQUE:2 images of a specimen were obtained FINDINGS: Three clips are noted within the breast specimen. Calcifications are noted within the specimen. Correlate clinically. IMPRESSION: 1. Three clips are noted within the breast specimen. Calcifications are noted within the specimen. Correlate clinically. Reviewed, dictated and finalized at location Q. IMPRESSION: 1. Three clips are noted within the breast specimen. Calcifications are noted w ithin the specimen. Correlate clinically.
--- OUTSIDE RECORDS SUMMARY | 2025-08-03 02:01 | XMS_ITS | Clinical Summary ---
Author Organization [facility] Building [address] Address [address] [place] [address] Care Team Providers Care Tower Dragline Operator Name Role Phone Leif Haddad MD Unavailable [phone] Shemar Dobbins MD Unavailable Carmen Edouard NP Primary Care Provider Allergies Active Allergy Reactions Criticality Noted Date Comments Codeine Other (See comments) Low 02/04/2024 Noted from H&P sent from PCM office Medications triamcinolone (KENALOG) 0.1 % cream Apply 1 g topically every 8 hours 02/03/20 24 Active cetirizine 10 mg capsule Take 1 tablet by mouth daily Active multivitamin tabletIndications:Vitam in Deficiency Prevention Take 1 tablet by mouth Active omega 0-zok-fqr-fish oil 1,000 mg (120 mg-180 mg) capsule Take 1 capsule (1,000 mg total) by mouth daily Active calcium carbonate (TUMS) 1,000 mg (400 mg elemental) tablet,chewable 1,100 mg Acti ve cholecalciferol, vitamin D3, 1,000 unit tablet,chewable Take 1 tablet/chew tab by mouth daily Active jsir-cfbtpg-sijusyaz-D3 -C-Mn 500-400-667 mg-mg-unit capsule Take 1 tablet by mouth daily Active coenzyme Q10 100 mg capsule Take 1 capsule (100 mg total) by mouth daily Active biotin 1 mg capsule Take by mouth Active polycarbophil (FIBERCON) 625 mg tablet Take 2 tablets (1,250 mg total) by mouth daily Active vit C,B-Ag-jhxbt-lutein-dipak sumaya 250-90-40-1 mg capsule Take by mouth [...] 03/18/20 25 Active Spiriva Respimat 2.5 mcg/actuation inhalerIndications:Chemical Tester marianna obstructive pulmonary disease, unspecified COPD type [...] albuterol. 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 Continue statin therapy. 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 Gender Identity Not on file Sexual Orientation [...] Recently Relevant to Health Maintenance Insurance MEDICARE [facility] Care Teams Tower Dragline Operator Relationship Specialty Start Date End Date Carmen Edouard NP [address] [facility] [address] [place], [place] [id number] PCP - General Family Medicine 01/26/25 Leif Haddad MD [address] [facility] [address] [facility] [address] [place] [address] Referring Physician Obstetrics and Gynecology 06/03/24 Shemar Dobbins MD [address] [place] [id number] Consulting Physician Pulmonary Disease 06/03/24
--- OUTSIDE RECORDS SUMMARY | 2025-08-03 02:02 | XMS_ITS | Patient Health Record ---
Author Organization [facility] [place] ([address]) Address [address] [facility] [address] [place] [address] Care Team Providers Care Sourcing Engineer Name Role Phone Malcolm Yari Primary Care Provider UnavailArie Nath Unavailable [phone] Alanis Vera Unavailable Unavailable Elie Giron Unavailable [phone] Allergies Allergen (clinical drug ingredient) Drug/Non Drug Allergy documented on EMR Reaction Allergy Type Onset Date Status codeine Codeine vomiting Drug Allergy Active Reason For Referral No Information Medications Medication SIG (Take, Route, Frequency, Duration) Notes Start Date End Date Status CETIRIZINE 10 mg 1 tab(s) orally once [...] w and pick correct strength-formulat ion from [employer] options. If intended option is not shown, [...] e-prescription and drug interaction check* 06/18/2023 Active Atorvastatin Calcium *Please rev iew and pick correct strength-formulat ion from [employer] options. If intended option is not shown, discontinue and re-order from [employer]* Active FAMOTIDINE 40 mg 1 tab(s) orally 30 mins prior to SCIT; Duration: 30 days 08/13/2023 Active FAMOTIDINE 40 mg 1 tab(s) orally 30 mins prior to SCIT; Duration: 30 days 08/13/2023 Active FLUTICASONE NASAL 50 mcg/inh 2 spray(s) in each nostril BID; Duration: 30 day(s) Active Sertraline HCl *Please review and pick correct strength-formulat ion from [employer] options. If intended option is not shown, discontinue and re-order from Quick Search* Active Social History Tobacco Use: Social History Observation Description Date Details (start date - stop date) Former Smoker NA - NA Smoking Smart Form: Question Answer Notes Are you a: former smoker How long it has been since you last smoked? > 10 years Problems Problem Type SNOMED Code ICD Code Onset Dates Problem Status W/U Status Risk Notes Problem Chronic allergic conjunctivitis (13971144) Other chronic allergic conjunctivitis (H10.45) Active confirmed Problem Allergic rhinitis caused by pollen (disorder) (09430766) Allergic rhinitis due to pollen (J30.1) Active confirmed Problem Allergic rhinitis caused by animal hair and dander (536680481333615) Allergic rhinitis due to animal (cat) (dog) hair and dander (J30.81) Active confirmed Problem Allergic rhinitis (04822857) Other allergic rhinitis (J30.89) Active confirmed Problem Chronic obstructive pulmonary disease (89126248) Chronic obstructive pulmonary disease, unspecified (J44.9) Active confirmed Problem Allergic rhinitis caused by pollen (disorder) (84377948) Allergic rhinitis due to pollen (J30.1) Active confirmed Problem Allergic rhinitis caused by animal hair and dander (578097475862646) Allergic rhinitis due to animal (cat) (dog) hair and dander (J30.81) Active confirmed Problem Allergic rhinitis (30943379) Other allergic rhinitis (J30.89) Active confirmed Problem Chronic allergic conjunctivitis (63827748) Other chronic allergic conjunctivitis (H10.45) Active confirmed Problem Chronic cough (37108157) Chronic cough (R05.3) Active confirmed Encounters Encounter Location Date Provider Diagnosis [facility] [address] [place] [phone] 12/24/2024 Elie Giron Allergic rhinitis du e to pollen J30.1 ; Other allergic rhinitis J30.89 ; Allergic rhinitis due to animal (cat) (dog) hair and dander J30.81 and Other chronic allergic conjunctivitis H10.45 [facility] [address] [place] [phone] 12/15/2024 Elie Giron Allergic rhinitis du e to pollen J30.1 ; Other allergic rhinitis J30.89 ; Allergic rhinitis due to animal (cat) (dog) hair and dander J30.81 and Other chronic allergic conjunctivitis H10.45 [facility] [address] [place] [phone] 11/24/2024 Elie Giron Allergic rhinitis du e to pollen J30.1 ; Other allergic rhinitis J30.89 ; Allergic rhinitis due to animal (cat) (dog) hair and dander J30.81 and Other chronic allergic conjunctivitis H10.45 [facility] [address] [place] [phone] 2024 Elie Mack Allergic rhinitis du e to pollen J30.1 ; Other allergic rhinitis J30.89 ; Allergic rhinitis due to animal (cat) (dog) hair and dander J30.81 and Other chronic allergic conjunctivitis H10.45 [facility] [address] [place] [phone] 09/15/2024 Elie Mack Allergic rhinitis du e to pollen J30.1 ; Other allergic rhinitis J30.89 ; Allergic rhinitis due to animal (cat) (dog) hair and dander J30.81 and Other chronic allergic conjunctivitis H10.45 [facility] [address] [place] [phone] 08/18/2024 Elie Giron Allergic rhinitis du e to pollen J30.1 ; Other allergic rhinitis J30.89 ; Allergic rhinitis due to animal (cat) (dog) hair and dander J30.81 and Other chronic allergic conjunctivitis H10.45 [facility] [address] [place] [phone] 07/20/2025 Eliebryce Giron Allergic rhinitis du e to pollen J30.1 ; Other allergic rhinitis J30.89 ; Allergic rhinitis due to animal (cat) (dog) hair and dander J30.81 and Other chronic allergic conjunctivitis H10.45 [facility] [address] [place] [phone] 06/17/2025 Elie Giron Allergic rhinitis du e to pollen J30.1 ; Other allergic rhinitis J30.89 ; Allergic rhinitis due to animal (cat) (dog) hair and dander J30.81 and Other chronic allergic conjunctivitis H10.45 [facility] [address] [place] [phone] 05/20/2025 Elie Giron Allergic rhinitis du e to pollen J30.1 ; Other allergic rhinitis J30.89 ; Allergic rhinitis due to animal (cat) (dog) hair and dander J30.81 and Other chronic allergic conjunctivitis H10.45 [facility] [address] [place] [phone] 04/22/2025 Elie Giron Allergic rhinitis du e to pollen J30.1 ; Other allergic rhinitis J30.89 ; Allergic rhinitis due to animal (cat) (dog) hair and dander J30.81 and Other chronic allergic conjunctivitis H10.45 [facility] [address] [place] [phone] 03/25/2025 Elie Giron Allergic rhinitis du e to pollen J30.1 ; Other allergic rhinitis J30.89 ; Allergic rhinitis due to animal (cat) (dog) hair and dander J30.81 and Other chronic allergic conjunctivitis H10.45 [facility] [address] [place] [phone] 02/25/2025 Elie Giron Allergic rhinitis du e to pollen J30.1 ; Other allergic rhinitis J30.89 ; Allergic rhinitis due to animal (cat) (dog) hair and dander J30.81 and Other chronic allergic conjunctivitis H10.45 [facility] [address] [place] [phone] 01/28/2025 Elie Giron Allergic rhinitis du e to pollen J30.1 ; Other allergic rhinitis J30.89 ; Allergic rhinitis due to animal (cat) (dog) hair and dander J30.81 and Other chronic allergic conjunctivitis H10.45 [facility] [address] [place] [phone] 12/31/2024 Elie Giron Allergic rhinitis du e to pollen J30.1 ; Other allergic rhinitis J30.89 ; Allergic rhinitis due to animal (cat) (dog) hair and dander J30.81 and Other chronic allergic conjunctivitis H10.[address] [phone] 07/20/2025 Elie Giron Assessments Encounter Date Diagnosis (ICD Code) Assessment Notes Treatment Notes Treatment Clinical Notes Section Notes 08/18/2024 Allergic rhinitis due to pollen (ICD-10 - J30.1) 08/18/2024 Other allergic rhinitis (ICD-10 - J30.89) 09/15/2024 Allergic rhinitis due to pollen (ICD-10 - J30.1) 09/15/2024 Other allergic rhinitis (ICD-10 - J30.89) 2024 Allergic rhinitis due to pollen (ICD-10 - J30.1) 2024 Other allergic rhinitis (ICD-10 - J30.89) 11/24/2024 Allergic rhinitis due to pollen (ICD-10 - J30.1) 11/24/2024 Other allergic rhinitis (ICD-10 - J30.89) 12/15/2024 Allergic rhinitis due to pollen (ICD-10 - J30.1) 12/15/2024 Other allergic rhinitis (ICD-10 - J30.89) 12/24/2024 Allergic rhinitis due to pollen (ICD-10 - J30.1) 12/24/2024 Other allergic rhinitis (ICD-10 - J30.89) 12/31/2024 Allergic rhinitis due to pollen (ICD-10 - J30.1) 12/31/2024 Other allergic rhinitis (ICD-10 - J30.89) 01/28/2025 Allergic rhinitis due to pollen (ICD-10 - J30.1) 01/28/2025 Other allergic rhinitis (ICD-10 - J30.89) 02/25/2025 Allergic rhinitis due to pollen (ICD-10 - J30.1) 02/25/2025 Other allergic rhinitis (ICD-10 - J30.89) 03/25/2025 [...] 06/17/2025 Other allergic rhinitis (ICD-10 - J30.89) 07/20/2025 Allergic rhinitis due to pollen (ICD-10 - J30.1) 07/20/2025 Other allergic rhinitis (ICD-10 - J30.89) 07/20/2025 Allergic rhinitis due to animal (cat) (dog) [...] (dog) hair and dander (ICD-10 - J30.81) 02/25/2025 Allergic rhinitis due to animal (cat) [...] hair and dander (ICD-10 - J30.81) 08/18/2024 Other chronic allergic conjunctivitis (ICD-10 - H10.45) 09/15/2024 Other chronic allergic conjunctivitis (ICD-10 - H10.45) 2024 Other chronic allergic conjunctivitis (ICD-10 - [...] Other chronic allergic conjunctivitis (ICD-10 - H10.45) 07/20/2025 Other chronic allergic conjunctivitis (ICD-10 - H10.45) Plan Of Treatment Next Appt Details Provider Name:Paula Del Angel , 08/19/2025 01:30:00 PM, [address] [facility], [address], [phone], Provider Name:Elie Giron , 09/16/2025 12:30:00 PM, [address] [facility], [address], [phone], Insurance Providers Payer Name Payer Address Payer Phone Subscriber Number Group Number Insured Name Patient Relationship to Insured Coverage Start Date Coverage End Date [employer] (Medicare) Attention Claims [address] [place] [address] [phone] [id number] Tarah Fitzpatrick Self - patient is the insured [facility] [address] [place] [address] [id number] Tarah Fitzpatrick Self - patient is the insured Medical (General) History Medical History History ICD Code Hypercholesterolemia COPD Surgical History Surgery Date(Month/Year) Hospitalization History Reason Date(Month/Year)
--- OUTSIDE RECORDS SUMMARY | 2025-08-03 02:02 | XMS_ITS | Clinical Summary ---
Author Organization [facility] Address [address] [place] [address] Care Team Providers Care Contact Center Consultant Name Role Phone Unavailable Primary Care Provider Unavailabl e Encounters Date Type Department Care Team Description 07/23/2025 Abstract [facility] Oncology and Hematology [facility] [address] [place] [address] Rakesh Núñez MD from Last [...] Description 08/04/2025 3:00 PM CDT Office Visit [facility] Oncology [facility] [address] [place] [address] Rakesh Núñez MD [address] [facility] [address] [place] [address] Health Maintenance Due Date Last Done Comments DTAP/TDAP/TD VACCINES (1 - Tdap) 1963 PNEUMOCOCCAL VACCINE 50+ YEARS (1 of 1 - PCV) 10/13/19 94 ZOSTER VACCINE (1 of 2) 1994 OSTEOPOROSIS SCREENING 2009 INFLUENZA VACCINE (#1) 2025 RSV VACCINE (60+ or ) Completed 07/25/2023 Insurance RX [facility] [facility] MEDICARE PART A AND B [facility]
[2025-08-03] MEDS: LIDOCAINE/PRILOCAINE CREAM 2.5-2.5% TUBE 1 EACH TOPICAL (08:40)
[2025-08-03] MEDS: ACETAMINOPHEN 500 MG TABLET 1000 MG PO (08:45)
[2025-08-03] MEDS: LACTATED RINGERS 1,000 ML 30 ML IV CONT (08:50)
--- NOTE | 2025-08-03 09:29 | P.HPUP_ITS ---
History and Physical Update Update Date/Time: 08/03/25 09:29 - Left breast lumpectomy with Mag seed localization and left sentinel lymph node biopsy with possible adjacent tissue transfer. History and Physical has been reviewed, including an updated exam of the pat ient. There are NO changes in the patient's condition. Risks, benefits, and alternatives have been discussed and questions answered. Patient agrees to proceed with procedure.
--- NOTE | 2025-08-03 09:40 | WPDANESEPPF ---
Anes - Initial Pre Proc Eval Procedure: Operation Date: 08/03/25 10:00 Proposed Procedures p Left Breast Lumpectomy with Mag Seed Localization, [place] Lymph Node Biopsy, Injection of Lymphoseek and Methylene Blue for Dual Tracing, Possible Adjacent Tissue Transfer - Kibmerly Chaudhry MD Date/Time: 08/03/25 09:40 Surgeon: Kimberly Chaudhry MD Pre Op Diagnosis: malignant neoplasm left breast Patient Data Age: 79 Gender: F Height: 1.52 m Weight: 69.1 kg Last Vital Signs Temp 36.7 C 08/03/25 08:15 Pulse 74 08/03/25 08:15 Resp 20 08/03/25 08:15 BP 139/59 L 08/03/25 08:15 Pulse Ox 95 08/03/25 08:15 O2 Del Method Room Air 08/03/25 08:15 Allergies Allergy/AdvReac Type Severity Reaction Status Date / Time tetracycline Allergy Unknown Rash Verified 08/03/25 08:21 codeine AdvReac Unknown n/v Verified 08/03/25 08:21 montelukast AdvReac Unknown DIARRHEA Verified 08/03/25 08:21 Home Medications ?Medication ?Instructions ?Recorded ?Confirmed ?Type atorvastatin 10 mg tablet 10 mg PO DAILY 03/16/21 08/03/25 History biotin 1,000 mcg chewable tablet 1,000 mcg PO DAILY 03/16/21 08/03/25 History calcium carbonate (Calcium 500) 500 mg PO DAILY 03/16/21 08/03/25 History calcium polycarbophil 625 mg 1,250 mg PO DAILY 03/16/21 08/03/25 History tablet (Fiber Laxative (calcium polycarbophil)) cholecalciferol (vitamin D3) 25 25 mcg PO DAILY 03/16/21 08/03/25 History mcg (1,000 unit) capsule coenzyme Q10 75 mg capsule (Ultra 75 mg PO DAILY 03/16/21 08/03/25 History CoQ10) docusate sodium 100 mg capsule 100 mg PO DAILY 03/16/21 08/03/25 History (Stool Softener) glucosamine HCl 500 mg tablet 500 mg PO DAILY 03/16/21 08/03/25 History multivitamin 1 tablet PO DAILY 03/16/21 08/03/25 History omega-3 fatty acids 1,000 mg 1,000 mg PO DAILY 03/16/21 08/03/25 History capsule (Fish Oil Concentrate) sertraline 100 mg tablet 150 mg PO DAILY 03/16/21 08/03/25 History vitamins A,C,B-wnmt-cpkedl 4,296 1 cap PO BID 05/01/22 08/03/25 History mcg-226 mg-90 mg capsule (ICaps AREDS) cetirizine 10 mg tablet 10 mg PO DAILY PRN allergy symptoms 08/05/24 08/03/25 History tiotropium bromide 2.5 2 inh inhalation DAILY 08/05/24 08/03/25 History mcg/actuation mist for inhalation (Spiriva Respimat) albuterol sulfate 90 mcg/actuation 2 puff inhalation Q4-6H PRN 07/26/25 08/03/25 History aerosol inhaler shortness of breath or wheezing Patient hx anesthesia problems: none Family hx anesthesia problems: none Results Review: All pre-operative results and documents have been reviewed as part of the pre-operative evaluation. REPLACED BY [facility] Past Medical History Medical History COPD (chronic obstructive pulmonary disease) High cholesterol Surgical History Surgical History S/P tonsillectomy S/P dilation and curettage Family History Family History Father Family history of hypercholesterolemia Mother Carcinoma of colon Social History Social History Smoking packs per day: 1.5 Smoking cigarettes per day: 30.0 Years smoked: 40 Smoking pack-years: 60.00 Smoking status: Former smoker Tobacco type: cigarettes Smoking end date: 11/11/05 Alcohol intake: current Drinks per week: 1 Substance use: never Substance use type: does not use Do You Feel Safe in your Home?: Yes Lack of Transportation: No Lack of Food: Never True Current Housing: I Have Housing Concerned About Future Housing: No Difficulty Paying Gas/Electric Bills: No Difficulty Paying for Meds: No Currently Unemployed: No Education: Bachelor's Degree Difficulty w/ Childcare or Family Care: No Living arrangements: alone Spiritual care concerns: No Anes - Eval Final PreProcedure Day of Procedure 08/03/25 09:40 Patient weight: overweight Heart: regular rate and rhythm Lungs: decreased breath sounds Airway: Mallampati scale class II Neurological: alert and oriented Last oral intake: >/= 8 hours ASA classification: III Emergent: no Anesthetic plan: proceed Anesthesia type and monitoring: general ETT and standard monitoring Results Review: All pre-operative results and documents have been reviewed as part of the pre-operative evaluation. Informed Consent: The patient's anesthetic plan and its attendant risks and benefits were discussed with the patient/family/POA. Questions were solicited and answers provided to the satisfaction of the patient/family/POA.
[2025-08-03] MEDS: ceFAZolin 2 GM in SODIUM CHLORIDE 0.9% IV 50 ML 100 ML IVPB (09:57)
[2025-08-03] MEDS: BUPIVACAINE/EPINEPHRINE 0.5% 30 ML VIAL 20 ML INFILTRATE (09:59)
[2025-08-03] MEDS: METHYLENE BLUE 0.5% INJ 10 ML AMPULE XX (10:35)
--- NOTE | 2025-08-03 10:36 | S_PTH ---
PATIENT: Tarah Fitzpatrick LOC: [facility] U#:[id number] AGE/SX: 79/F ROOM: RE08/03/[address]: Kimberly Chaudhry MD : 1945 BED: DIS: 08/03/2025 SPEC #: [id number] RECD: 08/03/25 10:40 STATUS: FELICIANO REQ #: [id number] SIMONE: 08/03/25 10:[address]: Kimberly Chaudhry DEPT: [facility] Surgical RECD BY: Lisandra Landin ENTERED: 08/03/25 10:41 SP TYPE: Surgical OTHR DR: Carmen Edouard, UNDERGROUND ELECTRICIAN Tissues: A - [place] [address] Breast B - Breast Lumpectomy C - Breast Re-Excision Procedures: Hematoxylin and Eosin Stain Gross and Microscopic Level 5
--- NOTE | 2025-08-03 11:39 | P.OP_ITS ---
Procedure Note - Detailed Date of Procedure 08/03/25 Pre-op Diagnosis malignant neoplasm left breast Post-op Diagnosis Same Procedure Performed 1. Left breast lumpectomy with Mag seed localization. 2. Left sentinel lymph node biopsy. 3. Injection of methylene blue and Lymphoseek for sentinel lymph node mapping. Surgeon Kimberly Chaudhry MD Anesthesia General Description of Procedure Patient was identified in the pre-operative area and brought to the OR suite. She underwent tumor localization previously by IR with magseed placement and I perform Lymphoseek injection in the preoperative holding area. She was laid supine in the operating table and sequential compression devices were applied. General anesthesia was induced without difficulties. Diluted methylene blue 50:50 was injected in the subdermal periareolar plane for dual tracing. The left chest and axillary areas were prepped and draped in a sterile fashion. The Neoprobe was used to scan the axilla and find an area of high radio activity and a small incision was made overlying this area. Dissection was carried down through the subcutaneous tissue and the clavipectoral fascia was encountered and opened. I was able to identify a sentinel lymph node that was hot and blue and this was gently grasped and excised using the LigaSure device. Ty Ty lymph node 1 ex vivo count was 69,497, and this was sent to pathology as a fresh specimen. The Neoprobe was again used to scan the axilla and no further lymph nodes were identified with a least 10% of the radio activity. The axillary wound was irrigated with saline and hemostasis was assured. The clavipectoral fascia was approximated with a running 2 0 Vicryl. The deep dermal layer was then closed with interrupted 3-0 Vicryl followed by 4-0 Monocryl in a subcuticular fashion for the skin. Dermabond was applied. Attention was then turned to the left breast. The sentimag probe was used to identify the area where the magseed was placed and a lateral IMF incision was made. Dissection was carried down through the subcutaneous tissue into the breast tissue. The tumor was identified with palpation and using sentimag probe, and a rim of normal breast tissue was excised along with the tumor as our lumpectomy specimen. Once the specimen was completely excised, it was oriented using surgical paint according to reservoir engineer instructions. The specimen was placed in the faxitron and 2 radiographs were obtained for radiographic confirmation of Tumor, biopsy marker and magseed within the specimen. I reviewed the Faxitron images and found that the anterior margin was rather close to the Mag seed and the biopsy clip and proceed to excise an additional anterior margin which was also sent to pathology as a fresh specimen. The wound was irrigated with saline and hemostasis was assured. Several intraparenchymal 2 0 Vicryl sutures were used to approximate the lumpectomy cavity to decrease the risk of seroma. The deep dermal layer was approximated using interrupted 3-0 vicryl followed by 4-0 monocryl for the skin. Dermabond was applied followed by a surgical bra. Patient was awoken from anesthesia and taken to the recovery area in stable condition. All needles, instruments and sponge counts were correct as reported by the operating room staff. Patient tolerated the procedure well with no immediate complications. Estimated Blood Loss 5 Pathology Yes Complications No immediate complications Condition Stable Disposition PACU [facility] Billing Surgery - Charge Forward: Surgery Billing (CPT 91406, 22131 - 59, 95979 - 59, 94032 - 59)
[2025-08-03] MEDS: fentaNYL CITRATE INJ (*CRX) 100 MCG/2 ML VIAL 25 MCG IV PUSH ×2 (12:09→12:22)
[2025-08-03 13:00] LABS: Hepatitis B Surface Antigen Negative (Negative)
[2025-08-03] MEDS: traMADol HCL (*CRX) 50 MG TABLET PO (13:00)
[2025-08-03 13:18] LABS: HIV 1/2 Ab P24 Ag Result Negative (Negative)
== END 2025-08-03 13:50 | disposition home or self-care (01) ==
PROVIDERS: PCP Nurse Practitioner Family; Visit Provider Surgery
PROC: (CPT 19301; principal; 2025-08-03 10:00)
DX: C50.412 Malignant neoplasm of upper-outer quadrant of left female breast (principal); Z17.0 Estrogen receptor positive status [ER+]; Z17.21 Progesterone receptor positive status; Z17.32 Human epidermal growth factor receptor 2 negative status; Z11.4 Encounter for screening for human immunodeficiency virus [HIV]; R59.1 Generalized enlarged lymph nodes; J44.9 Chronic obstructive pulmonary disease, unspecified; E78.00 Pure hypercholesterolemia, unspecified; Z79.51 Long term (current) use of inhaled steroids; Z98.890 Other specified postprocedural states; Z87.891 Personal history of nicotine dependence; Z80.0 Family history of malignant neoplasm of digestive organs
CPT/HCPCS: 19301; 38525; 38900; 36415; 38792; 76098; 86703; 86803; 87340; 88307; J0690; A9270; A9520; C1713; G0432; J1100; J2405; J2704; J3010; J7120; Q9968

== ENCOUNTER 2025-08-04 15:46 | Outpatient (CLI) | payer MEDICARE, BC, SELFPAY ==
--- OUTSIDE RECORDS SUMMARY | 2025-08-04 15:00 | XMS_ITS | Encounter Summary ---
Author Organization [facility] [address] [facility] Address [address] [place] [address] Care Team Providers Care Sdet Name Role Phone Unavailable Primary Care Provider Unavailabl e Reason for Referral * Radiation Therapy (Routine) - Open Specialty Diagnoses / Procedures Referred By Contac t Referred To Contact Diagnoses Malignant neoplasm of left breast in female, estrogen receptor positive, unspecified site of breast (CMS/HCC) Procedures SD OFFICE/OUTPATIENT ESTABLISHED MOD MDM 30 MIN SD OFFICE/OUTPATIENT NEW MODERATE MDM 45 MINUTES Cj Toro MD [address] [facility] [address] [place] [address] Phone: tel: fax: Referral ID Status Reason Start Date Expiration Date Visits Re quested Visits Authorized [id number] Open 08/04/2025 08/04/2026 1 1 * Radiology Services (Routine) - Pending Review Specialty Diagnoses / Procedures Referred By Contac t Referred To Contact Diagnoses Osteopenia of multiple sites Procedures XR DEXA BONE DENSITY AXIAL 1 OR MORE SITES Rakesh Núñez MD [address] [address] Phone: tel: fax: Referral ID Status Reason Start Date Expiration Date V isits Requested Visits Authorized [id number] Pending Review 08/04/2025 09/04/2026 1 1 Encounter Details Date Type Department Care Team (Late st Contact Info) Description 08/04/2025 3:00 PM CDT Office Visit [facility] Oncology and Hematology [facility] [address] [place] [address] Rakesh Núñez MD [address] [facility] [address] [place] [address] Malignant neoplasm of left breast in female, estrogen receptor positive, unspecified site of breast (CMS/HCC) (Primary Dx); Osteopenia of multiple sites Social History Tobacco Use Types Packs/Day Years Used Date Smoking Tobacco: Former Cigarettes 1 40 0 11/11/1965 - 11/11/2005 Smokeless Tobacco: Never Tobacco Cessation:Counseling Given: Not Answered Alcohol Use Standard Drinks/Week Comments Yes 0 (1 standard drink = 0.6 oz pur e alcohol) Ocassionally Comments Unknown Sex and Gender Information Value Date Recorded Sex Assigned at Not on file Legal Sex Female 3:44 PM CDT Gender Identity Not on file Sexual Orientation Not on file documented as of this encounter Last Filed Vital Signs Vital Sign Reading Time Taken Comments Blood Pressure 139/69 08/04/2025 3:07 PM CDT Pulse 74 08/04/2025 3:07 PM CDT Temperature 36 C (96.8 F) 08/04/2025 3:07 PM CDT Respiratory Rate 16 08/04/2025 3:07 PM CDT Oxygen Saturation 94% 08/04/2025 3:07 PM CDT Inhaled Oxygen Concentration - - Weight 69.1 kg (152 lb 6.4 oz) 08/04/2025 3:07 P M CDT Height 152.4 cm (5') 08/04/2025 3:07 PM CDT Body Mass Index 29.76 08/04/2025 3:07 PM CDT documented in this encounter Plan of Treatment Upcoming Encounters Date Type Department Care Team (Late st Contact Info) Description 09/01/2025 4:30 PM CDT Telephone Check Up [facility] Oncology and Hematology [facility] [address] [place] [address] Rakesh Núñez MD [address] [facility] [address] [place] [address] Scheduled Orders Name Type Priority Associated Diagnoses Orde r Schedule CBC WITH DIFFERENTIAL Lab Stat Malignant neoplasm of left breast in female, estrogen receptor positive, unspecified site of breast (CMS/HCC) Expected: 09/11/2025, Expires: 08/04/2026 COMPREHENSIVE METABOLIC PANEL Lab Stat Malignant neoplasm of left breast in female, estrogen receptor positive, unspecified site of breast (CMS/HCC) Expected: 09/11/2025, Expires: 08/04/2026 CANCER ANTIGEN 15-3 Lab Routine Malignant neoplasm of left breast in female, estrogen receptor positive, unspecified site of breast (CMS/HCC) Expected: 09/15/2025, Expires: 08/04/2026 XR DEXA BONE DENSITY AXIAL 1 OR MORE SITES Imaging Routine Osteopenia of multiple sites Expected: 09/08/2025, Expires: 08/04/2026 Scheduled Referrals Name Type Priority Associated Diagnoses Orde r Schedule AMB REFERRAL TO RADIATION ONCOLOGY Outpatient Referral Routine Malignant neoplasm of left breast in female, estrogen receptor positive, unspecified site of breast (CMS/HCC) Ordered: 08/04/2025 documented as of this encounter Visit Diagnoses Diagnosis Malignant neoplasm of left breast in female, estrogen receptor positive, unspecified site of breast (CMS/HCC)- Primary Osteopenia of multiple sites documented in this encounter
--- OUTSIDE RECORDS SUMMARY | 2025-08-04 15:50 | XMS_ITS | Clinical Summary ---
Author Organization [facility] Address [address] [facility] [place] [address] Care Team Providers Care Patient Companion Name Role Phone Unavailable Primary Care Provider Unavailabl e Allergies Active Allergy Reactions Criticality Noted Date Comments Codeine Other (See Comments) Low 02/04/2024 Noted from H&P sent from [facility] office Tetracycline Rash Low 08/04/2025 Medications atorvastatin (LIPITOR) 10 mg tablet Take 10 mg by mouth daily. Active albuterol sulfate HFA 90 mcg/actuation aerosol inhaler TAKE 2 PUFFS BY MOUTH EVERY 6 HOURS NEEDED FOR WHEEZE OR FOR SHORTNESS OF BREATH Active sertraline (ZOLOFT) 100 mg tablet Take 100 mg by mouth daily. Active Spiriva Respimat 2.5 mcg/actuation Mist 2 Puffs daily. Activ e Active Problems No known active problems Encounters Date Type Department Care Team Description 08/04/2025 3:00 PM CDT Office Visit [facility] Oncology and Hematology [facility] [address] [place] [address] Rakesh Núñez MD Malignant neoplasm of left breast in female, estrogen receptor positive, unspecified site of breast (CMS/HCC) (Primary Dx); Osteopenia of multiple sites 07/23/2025 Abstract [facility] Oncology and Hematology [facility] [address] [place] [address] Rakesh Núñez MD from Last 3 Months Immunizations Immunization Administration Dates Next Due (AREXVY)(60 YR UP) RSV, MOODY MBINANT, PROTEIN SUBUNIT RSVPREF, ADJUVANT RECONSTITUTED, 0.5 ML, PF 07/25/2023 Family History Medical History Relation Name Comments Melanoma Brother Heart Disease Father Colon Cancer Mother Heart Disease Mother Relation Name Status Comments Brother Father Mother Social History Tobacco Use Types Packs/Day [...] on file Sexual Orientation Not on file Last Filed Vital Signs Vital Sign Reading [...] Mass Index 29.76 08/04/2025 3:07 PM CDT Plan of Treatment Upcoming Encounters Date Type Department Care Team (Late st Contact Info) Description 09/01/2025 4:30 PM CDT Telephone Check Up [facility] Oncology and Hematology - [place] [address] [facility] [address] [place] [address] Rakesh Núñez MD [address] [facility] [address] [place] [address] Health Maintenance Due Date Last Done Comments DTAP/TDAP/TD VACCINES (1 - Tdap) 1964 Traditional Medicare (ACO) A nnual Wellness Visit 1964 OSTEOPOROSIS SCREENING 2009 INFLUENZA VACCINE (#1) 2025 4, 08/15/2023, 08/01/2022, Additional history exists ZOSTER VACCINE Completed 02/15/2022, 09/04/2021 PNEUMOCOCCAL VACCINE 50+ YEARS Completed 09/04/2022 , 09/04/2021 RSV VACCINE (60+ or ) Completed 07/25/2023 Insurance RX [facility] [employer] [facility] [employer] MEDICARE PART A AND B [facility]
--- OUTSIDE RECORDS SUMMARY | 2025-08-04 15:50 | XMS_ITS | Clinical Summary ---
Author Organization [facility] Address [address] [place] [address] Care Team Providers Care Traverse Rod Assembler Name Role Phone Leif Haddad MD Unavailable [phone] Shemar Dobbins MD Unavailable Carmen Edouard NP Primary Care Provider [phone] Allergies Active Allergy Reactions Criticality Noted Date Comments Codeine Other (See comments) Low 02/04/2024 Noted from H&P sent from [facility] office Medications triamcinolone (KENALOG) 0.1 % cream Apply 1 g topically every 8 hours 02/03/20 24 Active cetirizine 10 mg capsule Take 1 tablet by mouth daily Active multivitamin tabletIndications:Vitam in Deficiency Prevention Take 1 tablet by mouth Active omega 2-yaw-sqh-fish oil 1,000 mg (120 mg-180 mg) capsule Take 1 capsule (1,000 mg total) by mouth daily Active calcium carbonate (TUMS) 1,000 mg (400 mg elemental) tablet,chewable 1,100 mg Acti ve cholecalciferol, vitamin D3, 1,000 unit tablet,chewable Take 1 tablet/chew tab by mouth daily Active cmaw-ilihvn-bhhpvirb-D3 -C-Mn 500-400-667 mg-mg-unit capsule Take 1 tablet by mouth daily Active coenzyme Q10 100 mg capsule Take 1 capsule (100 mg total) by mouth daily Active biotin 1 mg capsule Take by mouth Active polycarbophil (FIBERCON) 625 mg tablet Take 2 tablets (1,250 mg total) by mouth daily Active vit C,F-Th-sisyc-lutein-dipak sumaya 250-90-40-1 mg capsule Take by mouth [...] 03/18/20 25 Active Spiriva Respimat 2.5 mcg/actuation inhalerIndications:Supervisor Mapping marianna obstructive pulmonary disease, unspecified COPD type [...] albuterol. 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 Continue statin therapy. Lipitor (atorvastatin) [...] 06/03/2024 Assessment & Plan (09/18/2024 10:34 AM WEARING APPAREL ASSEMBLER): Continue supplemental oxygen at 2 liters with [...] assing in 05/2014 Hearing loss Pulmonary emphysema COPD (chronic obstructive pu lmonary disease) Arthritis [...] on file Legal Sex Female 1:07 AM WEARING APPAREL ASSEMBLER Gender Identity Not on file Sexual Orientation [...] Relevant to Health Maintenance Insurance MEDICARE [facility] Care Teams Traverse Rod Assembler Relationship Specialty Start Date End Date Carmen Eduoard NP [address] [facility] [address] [place], [place] [id number] PCP - General Family Medicine 01/26/25 Leif Haddad MD [address] [facility] [address] [facility] [address] [place] [address] Referring Physician Obstetrics and Gynecology 06/03/24 Shemar Dobbins MD [address] [place] [address] DR BILL [address] [place] [address] Consulting Physician Pulmonary Disease 06/03/24
--- OUTSIDE RECORDS SUMMARY | 2025-08-04 15:50 | XMS_ITS | Patient Health Record ---
Author Organization [facility] ([address]) Address [address] [facility] [address] [place] [address] Care Team Providers Care Cloth Inspector Name Role Phone Malcolm Yari Primary Care Provider UnavailArie Nath Unavailable [phone] Alanis Vera Unavailable Unavailable Elie Giron Unavailable [phone] Allergies Allergen (clinical drug ingredient) Drug/Non Drug [...] w and pick correct strength-formulat ion from [employer] options. If intended option is not shown, [...] iew and pick correct strength-formulat ion from [employer] options. If intended option is not shown, [...] review and pick correct strength-formulat ion from [employer] options. If intended option is not shown, [...] Status Risk Notes Problem Chronic allergic conjunctivitis (50756175) Other chronic allergic conjunctivitis (H10.45) Active confirmed Problem Allergic rhinitis caused by pollen (disorder) (13325425) Allergic rhinitis due to pollen (J30.1) Active confirmed Problem Allergic rhinitis caused by animal hair and dander (834698813473215) Allergic rhinitis due to animal (cat) (dog) hair and dander (J30.81) Active confirmed Problem Allergic rhinitis (91143340) Other allergic rhinitis (J30.89) Active confirmed Problem Chronic obstructive pulmonary disease (85582514) Chronic obstructive pulmonary disease, unspecified (J44.9) Active confirmed Problem Allergic rhinitis caused by pollen (disorder) (09968683) Allergic rhinitis due to pollen (J30.1) Active confirmed Problem Allergic rhinitis caused by animal hair and dander (589705143880527) Allergic rhinitis due to animal (cat) (dog) hair and dander (J30.81) Active confirmed Problem Allergic rhinitis (23968834) Other allergic rhinitis (J30.89) Active confirmed Problem Chronic allergic conjunctivitis (02941992) Other chronic allergic conjunctivitis (H10.45) Active confirmed Problem Chronic cough (76827406) Chronic cough (R05.3) Active confirmed Encounters Encounter Location Date Provider Diagnosis [facility] [address] [place] [address] 12/24/2024 Elie Giron Allergic rhinitis du e to pollen J30.1 ; Other allergic rhinitis J30.89 ; Allergic rhinitis due to animal (cat) (dog) hair and dander J30.81 and Other chronic allergic conjunctivitis H10.45 [facility] [address] [place] [address] 12/15/2024 Elie Giron Allergic rhinitis du e to pollen J30.1 ; Other allergic rhinitis J30.89 ; Allergic rhinitis due to animal (cat) (dog) hair and dander J30.81 and Other chronic allergic conjunctivitis H10.45 [facility] [address] [place] [address] 11/24/2024 Elie Giron Allergic rhinitis du e to pollen J30.1 ; Other allergic rhinitis J30.89 ; Allergic rhinitis due to animal (cat) (dog) hair and dander J30.81 and Other chronic allergic conjunctivitis H10.45 [facility] [address] [place] [address] 2024 Elie Mack Allergic rhinitis du e to pollen J30.1 ; Other allergic rhinitis J30.89 ; Allergic rhinitis due to animal (cat) (dog) hair and dander J30.81 and Other chronic allergic conjunctivitis H10.45 [facility] [address] [place] [address] 09/15/2024 Elie Mack Allergic rhinitis du e to pollen J30.1 ; Other allergic rhinitis J30.89 ; Allergic rhinitis due to animal (cat) (dog) hair and dander J30.81 and Other chronic allergic conjunctivitis H10.45 [facility] [address] [place] [address] 08/18/2024 Elie Giron Allergic rhinitis du e to pollen J30.1 ; Other allergic rhinitis J30.89 ; Allergic rhinitis due to animal (cat) (dog) hair and dander J30.81 and Other chronic allergic conjunctivitis H10.45 [facility] [address] [place] [address] 07/20/2025 Eliebryce Giron Allergic rhinitis du e to pollen J30.1 ; Other allergic rhinitis J30.89 ; Allergic rhinitis due to animal (cat) (dog) hair and dander J30.81 and Other chronic allergic conjunctivitis H10.45 [facility] [address] [place] [address] 06/17/2025 Elie Giron Allergic rhinitis du e to pollen J30.1 ; Other allergic rhinitis J30.89 ; Allergic rhinitis due to animal (cat) (dog) hair and dander J30.81 and Other chronic allergic conjunctivitis H10.45 [facility] [address] [place] [address] 05/20/2025 Elie Giron Allergic rhinitis du e to pollen J30.1 ; Other allergic rhinitis J30.89 ; Allergic rhinitis due to animal (cat) (dog) hair and dander J30.81 and Other chronic allergic conjunctivitis H10.45 [facility] [address] [place] [address] 04/22/2025 Elie Giron Allergic rhinitis du e to pollen J30.1 ; Other allergic rhinitis J30.89 ; Allergic rhinitis due to animal (cat) (dog) hair and dander J30.81 and Other chronic allergic conjunctivitis H10.45 [facility] [address] [place] [address] 03/25/2025 Elie Giron Allergic rhinitis du e to pollen J30.1 ; Other allergic rhinitis J30.89 ; Allergic rhinitis due to animal (cat) (dog) hair and dander J30.81 and Other chronic allergic conjunctivitis H10.45 [facility] [address] [place] [address] 02/25/2025 Elie Giron Allergic rhinitis du e to pollen J30.1 ; Other allergic rhinitis J30.89 ; Allergic rhinitis due to animal (cat) (dog) hair and dander J30.81 and Other chronic allergic conjunctivitis H10.45 [facility] [address] [place] [address] 01/28/2025 Elie Giron Allergic rhinitis du e to pollen J30.1 ; Other allergic rhinitis J30.89 ; Allergic rhinitis due to animal (cat) (dog) hair and dander J30.81 and Other chronic allergic conjunctivitis H10.45 [facility] [address] [place] [address] 12/31/2024 Elie Giron Allergic rhinitis du e to pollen J30.1 ; Other allergic rhinitis J30.89 ; Allergic rhinitis due to animal (cat) (dog) hair and dander J30.81 and Other chronic allergic conjunctivitis H10.[address] [address] 07/20/2025 Elie Giron Assessments Encounter Date Diagnosis [...] Del Angel , 08/19/2025 01:30:00 PM, 2022 [facility], [address], [address], Provider Name:Elie Giron , 09/16/2025 12:30:00 PM, 2022 [facility], [address], [address], Insurance Providers Payer Name Payer Address Payer Phone Subscriber Number Group Number Insured Name Patient Relationship to Insured Coverage Start Date Coverage End Date [employer] (Medicare) Attention Claims [address] [place] [address] [id number] Tarah Fitzpatrick Self - patient is the insured [facility] [address] [place] [address] [id number] Tarah Fitzpatrick Self - patient is the insured Medical (General) History Medical History History ICD Code Hypercholesterolemia COPD Surgical History Surgery Date(Month/Year) Hospitalization History Reason Date(Month/Year)
[2025-08-04 16:07] LABS: Hematocrit 39.8 % (37.0-47.0); Hemoglobin 12.9 g/dL (12.0-15.0); Immature Granulocyte Percent A 0.2 % (0-0.5); Lymphocytes Absolute Auto 2.26 K/mm3 (0.9-3.2); Mean Corpuscular HGB Conc 32.4 g/dl (32-36); Mean Corpuscular Hemoglobin 28.0 pg (26-34); Mean Corpuscular Volume 86.3 fl (80-100); Nucleated Red Blood Cells Absolute Auto 0.000 K/mm3 (0.0-0.012); Nucleated Red Blood Cells Perc 0.0 % (0.0-0.2); Platelet Count Result 205 k/mm3 (150-375); Red Blood Count 4.61 M/mm3 (4.2-5.4); White Blood Count 8.6 K/mm3 (4.5-10.0)
[2025-08-04 16:54] LABS: Alanine Aminotransferase 17 U/L (6-35); Albumin Level 4.2 g/dL (3.5-5.1); Alkaline Phosphatase 64 U/L (38-126); Anion Gap 7 mmol/L (4-12); Aspartate Amino Transferase 33 U/L (14-36); Bilirubin,Total 0.4 mg/dL (0.2-1.3); Blood Urea Nitrogen 15 mg/dL (7-17); Calcium 8.9 mg/dL (8.4-10.2); Carbon Dioxide 28 mmol/L (22-30); Chloride 103 mmol/L (98-107); Estimated Glomerular Filt Rate > 60; Glucose 94 mg/dL (65-110); Potassium 4.5 mmol/L (3.4-5.0); Sodium 138 mmol/L (137-145); Total Protein 7.5 g/dL (6.3-8.2)
== END 2025-08-04 15:47 | disposition home or self-care (01) ==
LOC: ANHLAB 15:48
PROVIDERS: PCP Nurse Practitioner Family; Visit Provider Internal Medicine Hematology & Oncology
DX: C50.912 Malignant neoplasm of unspecified site of left female breast (principal); Z17.0 Estrogen receptor positive status [ER+]
CPT/HCPCS: 36415; 80053; 85025; 86300

== ENCOUNTER 2025-08-31 13:37 | Outpatient (CLI) | payer MEDICARE, BC, SELFPAY ==
--- NOTE | ~2025-08-31 | DEXA_ITS ---
Bone Density Report Name: YADIRA GILBERT Age: 79 Sex: Female Ethnicity: White Date of : 1945 Indication: osteopenia; height loss; cancer; asthma or emphysema; Referring Provider: Rakesh Núñez Study: Bone densitometry was performed. Exam Date: August 31, 2025 Accession number: [id number] Bone Density: Region BMD T-score Z-score Classification AP Spine(L1, L4) 1.095 0.5 3.2 Normal Femoral Neck (Left) 0.650 -1.8 0.6 Osteopenia Total Hip (Left) 0.739 -1.7 0.4 Osteopenia Femoral Neck (Right) 0.733 -1.0 1.3 Normal Total Hip (Right) 0.789 -1.3 0.9 Osteopenia Total Hip Mean 0.764 -1.5 0.7 Osteopenia World Health Organization criteria for BMD impression classify patients as: Normal (T-score at or above -1.0), Osteopenia (T-score between -1.0 and -2.5), or Osteoporosis (T-score at or below -2.5). 10-year Fracture Risk(1): Major Osteoporotic Fracture 14% Hip Fracture 3.7% Reported Risk Factors: [place] (), Neck BMD=0.650, BMI=29.6 (1) FRAX(R) Version 3.08. Fracture probability calculated for an untreated patient. Fracture probability may be lower if the patient has received treatment. Previous Exams: -- Region Exam Age BMD T-score BMD Change BMD Change Date g/cm2 vs Baseline vs Previous -- AP Spine (L1,L4) 08/31/2025 79 1.095 0.5 -0.5%# 3.4%* 06/14/2022 76 1.059 0.2 -3.8%# -4.8%* 09/10/2019 73 1.112 0.7 1.0%# 11.1%* 07/06/2014 68 1.001 -0.3 -9.1%# -1.0% 06/24/2012 66 1.011 -0.2 -8.2%# -1.9% 05/19/2010 64 1.030 -0.1 -6.4%# 5.5%* 05/07/2008 62 0.977 -0.5 -11.3%# -0.4% 04/30/2006 60 0.981 -0.5 -10.9%# -10.9%# 05/04/2003 57 1.101 0.6 Total Hip(Left) 08/31/2025 79 0.739 -1.7 -14.7%# -6.4%* 06/14/2022 76 0.790 -1.2 -8.9%# -0.1% 09/10/2019 73 0.790 -1.2 -8.9%# 3.9%* 07/06/2014 68 0.760 -1.5 -12.3%# 0.5% 06/24/2012 66 0.756 -1.5 -12.8%# -4.3%* 05/19/2010 64 0.791 -1.2 -8.8%# 4.0%* 05/07/2008 62 0.760 -1.5 -12.3%# -4.0%* 04/30/2006 60 0.792 -1.2 -8.7%# -8.7%# 05/04/2003 57 0.867 -0.6 Total Hip(Right) 08/31/2025 79 0.789 -1.3 -7.6%# -8.2%* 06/14/2022 76 0.860 -0.7 0.6%# 1.7% 09/10/2019 73 0.846 -0.8 -1.0%# 3.0% 07/06/2014 68 0.821 -1.0 -3.9%# 7.4%* 06/24/2012 66 0.764 -1.5 -10.5%# -3.6%* 05/19/2010 64 0.793 -1.2 -7.2%# 5.0%* 05/07/2008 62 0.755 -1.5 -11.6%# -7.6%* 04/30/2006 60 0.818 -1.0 -4.3%# -4.3%# 05/04/2003 57 0.854 -0.7 -- *Denotes significance at 95% confidence level, LSC for AP Spine = 0.022 g/cm2, LSC for Total Hip = 0.027 g/cm2 Rate of change results reflect vertebral levels common to all scans # Denotes dissimilar scan types or analysis methods Clinical Information Provided by Patient: Has used the following medications: Actonel (i.e. risedronate), Vitamin D, Calcium Has the following medical conditions: Asthma or Emphysema, Cancer, breast cancer Patient maximum height was 62 Menopause Age: 47 No regular weight bearing exercise Drinks caffeinated beverages Onset of menses at age 11 Number of children 0 Impression: The patient has low bone mass, based on the Left Femoral Neck T-score. The patient has an estimated ten-year risk of hip fracture of 3.7% and an estimated ten-year risk of major fracture of 14%, based on the WHO FRAX algorithm. The BMD for the Total Hip(Left) decreased, changing by -6.4% since the last DXA exam. The BMD for the Total Hip(Right) decreased, changing by -8.2% since the last DXA exam. Discussion: BONE DENSITY IS LOW AT ONE OR MORE SKELETAL SITES. THE PATIENT'S BMD AND CLINICAL RISK FACTORS CONTRIBUTE TO THIS PATIENT'S INCREASED RISK OF FRACTURE. This patient's lowest T-score is low at one or more skeletal sites. It meets the World Health Organization's (WHO) criteria for ?low bone mass? (T-score between -1.0 and -2.5). The patient's 10-year risk of hip fracture as calculated by FRAX exceeds the threshold where pharmacological therapy is recommended by the National Osteoporosis Foundation (NOF). However, all treatment decisions require clinical judgment and consideration of individual patient factors, including patient preferences, comorbidities, previous drug use, risk factors not captured in the FRAX model (e.g., frailty, falls, vitamin D deficiency, increased bone turnover, interval significant decline in bone density) and possible under or overestimation of fracture risk by FRAX. The patient should follow a healthful lifestyle (good nutrition with adequate calcium and vitamin D, and appropriate weight-bearing exercise). Follow-Up: Consider a repeat BMD and Vertebral Fracture Assessment (VFA) exam in 2 years or sooner if medically necessary, to reassess this patient's status. Reported by: INDY on 08/31/2025 1:58:00 PM. Reviewed, dictated and finalized at location A.
== END 2025-08-31 13:38 | disposition home or self-care (01) ==
LOC: MICIMG 13:38
PROVIDERS: PCP Nurse Practitioner Family; Visit Provider Internal Medicine Hematology & Oncology
DX: M85.89 Other specified disorders of bone density and structure, multiple sites (principal)
CPT/HCPCS: 77080

== ENCOUNTER 2025-09-09 12:37 | Outpatient (CLI) | payer MEDICARE, BC, SELFPAY ==
--- OUTSIDE RECORDS SUMMARY | 2025-03-11 12:30 | XMS_ITS ---
Author Organization [facility] [place] ([address]) Address [address] [place] [address] Care Team Providers Care Spa Assistant Manager Name Role Phone Carmen Edouard Primary Care Provider UnavailElie Carrillo [phone] Alanis Vera Unavailable REASON FOR VISIT SCIT (Aeroallergen) Social History Sex Assigned At : Social History Observation Description Sex Assigned At Female Encounters Encounter Location Date Provider Diagnosis [facility] [address] [place] [address] 03/11/2025 Elie Giron Plan Of Treatment No Information Progress Notes * John FITZPATRICKOB:1945 ( 79 yo F)Acc No.[id number]:03/11/2025 SCIT-Aeroallergen Patient: Tarah WEISS Provider: Marin Giron MD :1945 A ge:79 Y S ex:Female Date:03/11/2025 Address[address] [facility] Pcp:Carmen Edouard Subjective: * Chief Complaints: * 1 . SCIT (Aeroallergen). * Medical History: Objective: * Vitals: Assessment: Plan: * Treatment: * Billing Information: * Visit Code: * Procedure Codes: * Electronic signature of Josefina Giron MD, FAAAAI on 09/09/2025 at 01:11 PM CDT Sign off status: Pending * Provider: Marin Giron MD Date: 0 03/11/2025 Generated for Margarito quevedo/Judson/Dee on: 1 01:11 PM CDT
--- OUTSIDE RECORDS SUMMARY | 2025-08-19 12:30 | XMS_ITS ---
Author Organization [facility] [place] ([address]) Address [address] [place] [address] Care Team Providers Care Employment Assistant Name Role Phone Carmen Edouard Primary Care Provider UnavailElie Carrillo [phone] Alanis Vera Unavailable REASON FOR VISIT SCIT (Aeroallergen) Social History Sex Assigned At : Social History Observation Description Sex Assigned At Female Encounters Encounter Location Date Provider Diagnosis [facility] [address] [place] [address] 08/19/2025 Elie Giron Plan Of Treatment No Information Progress Notes * John FITZPATRICKOB:1945 ( 79 yo F)Acc No.[id number]:08/19/2025 SCIT-Aeroallergen Patient: Tarah WEISS Provider: Marin Giron MD :1945 A ge:79 Y S ex:Female Date:08/19/2025 Address:[address] [facility] Pcp:Carmen Edouard Subjective: * Chief Complaints: * 1 . SCIT (Aeroallergen). * Medical History: Objective: * Vitals: Assessment: Plan: * Treatment: * Billing Information: * Visit Code: * Procedure Codes: * Electronic signature of Josefina Giron MD, FAAAAI on 09/09/2025 at 01:11 PM CDT Sign off status: Pending * Provider: Marin Giron MD Date: 1 Generated for Margarito quevedo/Judson/Dee on: 01:11 PM CDT
--- OUTSIDE RECORDS SUMMARY | 2025-09-09 13:11 | XMS_ITS | Encounter Summary ---
Author Organization [facility] Healthcare Address [address] [place] [address] Care Team Providers Care Service Correspondent Name Role Phone Leif Haddad MD Unavailable [phone] Shemar Dobbins MD Unavailable Carmen Edouard NP Primary Care Provider [phone] Encounter Details Date Type Department Care Team (Latest Contact Info) Description 08/12/2025 Results Follow-Up [facility] Primary Care at [address] [address] Carmen Edouard NP [address] [place] [address] [address] [place] [address] CBC without differential, Comprehensive metabolic panel, Thyroid Function [place], Additional followed-up results: 3 Social History Tobacco Use Types Packs/Day Years Used Date Smoking Tobacco: Former Cigarettes 1.5 40 0 11/11/1965 - 2005 Smokeless Tobacco: Never AUDIT-C Answer Date Recorded Q1: How often [...] points, staff should administer the PHQ-9) 0 08/12/2025 Comments No Sex and Gender Information Value Date Recorded Sex Assigned at Not on file Legal Sex Female 1:07 AM [employer]V MECH[employer] Gender Identity Not on file Sexual Orientation Not on file documented as of this encounter Plan of Treatment Not on file documented as of this encounter Visit Diagnoses Not on filedocumented in this encounter Care Teams Service Correspondent Relationship Specialty Start Date End Date Carmen Edouard NP [address] [facility] [address] [place] [address] PCP - General Family Medicine 01/26/25 Leif Haddad MD [address] [facility] [address] [facility] [address] [place] [address] Referring Physician Obstetrics and Gynecology 06/03/24 Shemar Dobbins MD [address] [place] [address] [address] [place] [address] Consulting Physician Pulmonary Disease 06/03/24 documented as of this encounter
--- OUTSIDE RECORDS SUMMARY | 2025-09-09 13:12 | XMS_ITS | Clinical Summary ---
Author Organization [facility] Medical Office Building B Address [address] [place] [address] Care Team Providers Care Glass Presser Name Role Phone Leif Haddad MD Unavailable [phone] Shemar Dobbins MD Unavailable Carmen Edouard NP Primary Care Provider [phone] Allergies Active Allergy Reactions Criticality Noted Date Comments Codeine Other (See comments) Low 02/04/2024 Noted from H&P sent from PCM office Tetracycline Unknown 08/05/2024 Medications triamcinolone (KENALOG) 0.1 % cream Apply 1 g topically every 8 hours 02/03/20 24 Active cetirizine 10 mg capsule Take 1 tablet by mouth daily Active multivitamin tabletIndications:Vitam in Deficiency Prevention Take 1 tablet by mouth Active omega 7-xhy-vpi-fish oil 1,000 mg (120 mg-180 mg) capsule Take 1 capsule (1,000 mg total) by mouth daily Active calcium carbonate (TUMS) 1,000 mg (400 mg elemental) tablet,chewable 1,100 mg Acti ve cholecalciferol, vitamin D3, 1,000 unit tablet,chewable Take 1 tablet/chew tab by mouth daily Active jcjv-ynbvfv-rberwwjs-D3 -C-Mn 500-400-667 mg-mg-unit capsule Take 1 tablet by mouth daily Active coenzyme Q10 100 mg capsule Take 1 capsule (100 mg total) by mouth daily Active biotin 1 mg capsule Take by mouth Active polycarbophil (FIBERCON) 625 mg tablet Take 2 tablets (1,250 mg total) by mouth daily Active vit C,N-Eb-ajzei-lutein-dipak sumaya 250-90-40-1 mg capsule Take by mouth Active docusate sodium (COLACE) 100 mg capsuleIndications:cons tipation Take 1 capsule (100 mg total) by mouth 2 (two) times a day Active atorvastatin (LIPITOR) 10 mg tabletIndications:Pure hypercholesterolemia Take 1 tablet (10 mg total) by mouth daily 100 tablet 3 01/27/20 25 Active albuterol HFA (PROVENTIL HFA,VENTOLIN HFA,PROAIR HFA) 90 mcg/actuation inhaler Inhale 2 puffs every 6 (six) hours as needed for wheezing or shortness of breath 1 each 03/18/20 25 Active Spiriva Respimat 2.5 mcg/actuation inhalerIndications: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 marianna obstructive pulmonary disease, unspecified COPD type (HCC) Inhale 2 puffs daily 60 each 03/18/20 25 Active sertraline (ZOLOFT) 100 mg tabletIndications:Anxie ty Take 1.5 tablets (150 mg total) by mouth daily 150 tablet 3 08/12/20 25 Active tamoxifen (NOLVADEX) 20 mg tablet Take 1 tablet (20 mg total) by mouth daily 09/01/20 25 Active albuterol HFA (PROVENTIL HFA,VENTOLIN HFA,PROAIR HFA) 90 mcg/actuation inhaler Inhale 2 puffs every 6 (six) hours as needed for wheezing or shortness of breath 1 each 09/17/20 24 2024 Disconti nued(Dup licate order) sertraline (ZOLOFT) 100 mg tabletIndications:Anxie ty Take 1.5 tablets (150 mg total) by mouth daily 150 tablet 3 01/27/20 25 2024 Disconti nued(Reo rder) montelukast (SINGULAIR) 10 mg tablet Take 1 tablet (10 mg total) by mouth nightly 30 tablet 03/18/20 25 2024 Disconti nued(Pat ient Reported ) Active Problems Problem Noted Date Diagnosed Date Chronic allergic conjunctivitis 08/12/2025 Allergic rhinitis due to pollen 08/12/2025 Allergic rhinitis due to animal hair and dander 08/12/2025 Allergic rhinitis 08/12/2025 Assessment & Plan (09/03/2025 11:39 AM CDT): Previously on SCIT for almost 3 years Due to decreased FEV1 on bedside spirometry at dyno technician office her treatments were discontinued I will recheck complete pulmonary function testing Moderate major depression 08/12/2025 Malignant neoplasm of left b reast in female, estrogen receptor positive, unspecified site of breast 08/12/2025 Assessment & Plan (08/12/2025 3:12 PM CDT): Under current treatment,. Just had lumpectomy. Will be on hormone rafy and 5 radiation treatments. Chronic obstructive pulmonary disease 06/15/2024 Assessment & Plan (09/03/2025 11:27 AM CDT): She likely has overlap syndrome with [...] echocardiogram if her dyspnea does not improve Due to the bedside spirometry results at the dyno technician's office I will repeat a full pulmonary function test with and without bronchodilator, with lung volumes and DLCO. Assessment & Plan (03/18/2025 3:24 PM CDT): [...] albuterol. 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 Giron Continue cetirizine I will add montelukast 10 mg daily at the same time Assessment & Plan (09/18/2024 10:34 AM MARKET GARDENER): Currently on SCIT therapy Continue to follow with dyno technician Continue cetirizine, we discussed the addition of montelukast in the future Assessment & Plan (06/15/2024 3:22 PM CDT): Currently on SCIT therapy Suspicions for overlap syndrome Addition of ICS as above Cigarette nicotine dependence in remission 06/15 Assessment & Plan (09/18/2024 10:33 AM MARKET GARDENER): Last CT chest in March of 2023 [...] are stable, reviewed previous lipid levels in [facility]. Continue statin therapy. Lipitor (atorvastatin) Order [...] 06/03/2024 Assessment & Plan (09/18/2024 10:34 AM MARKET GARDENER): Continue supplemental oxygen at 2 liters with [...] Problem Noted Date Diagnosed Date Resolved Date Chronic cough 08/12/2025 08/12/2025 Centrilobular emphysema 06/03/2024 08/0 03/2024 Assessment & Plan (06/03/2024 7:21 PM CDT): Chronic. Symptoms are relatively controlled with Spiriva. Continue. Continue p.r.n. albuterol. Continue to obtain from smoking Encounters Date Type Department Care Team Description 09/06/2025 Telephone [facility] Primary Care at [address] [address] Carmen Edouard NP 09/02/2025 1:30 PM CDT Office Visit [facility] Pulmonary at [address] [place] [address] Alanis Vera NP Chronic obstructive pulmonary disease, unspecified COPD type (HCC) (Primary Dx); Non-seasonal allergic rhinitis, unspecified trigger 08/12/2025 3:35 PM CDT Lab [address] [address] Mixed hyperlipidemia 08/12/2025 3:00 PM CDT Office Visit [facility] Primary Care at [address] [phone] Carmen Edouard NP Medicare annual wellness visit, subsequent (Primary Dx); Anxiety; Mixed hyperlipidemia; Moderate major depression (HCC); Malignant neoplasm of left breast in female, estrogen receptor positive, unspecified site of breast (HCC) 08/12/2025 Results Follow-Up [facility] Primary Care at [address] [address] Carmen Edouard, COLLEEN CBC without differential, Comprehensive metabolic panel, Thyroid Function [place], Additional followed-up results: 3 from Last 3 Months Immunizations Immunization Administration Dates Next Due H1N1 All Forms 11/15/2009 Influenza, Quadrivalent, Hig h Dose, Preservative Free, Intrr 08/15/2023,08/01/2022,07/25/2021 Influenza, Trivalent, Adjuva nted, Intramuscular 08/06/2024 Influenza, Trivalent, High D ose, Split, Preservative Free, Intramuscular 07/27/2025,08/11/2019,08/19/2018,08/13,08/29/2015 Influenza, Trivalent, IM (MDV) 3,07/08/2012,07/03/2011,08/04,2009,09/02/2008,09/19/2007 Influenza, Unspecified 08/13/2024 Pneumococcal Conjugate PCV 13 09/04/2021 Pneumococcal Polysaccharide PPV23 09/04/2022,01/2009,11/11/2003 RSV Vaccine, Pref, Recombina nt, Subunit, Adjuvanted, PF, IM (Arexvy) 07/25/2023 Td, Not Adsorbed 01/30/2005 ZOSTER LIVE 12/23/2010 ZOSTER Recombinant 02/15/2022,09/04/2021 Surgical History Surgery Date Site/Laterality Comments NO PAST SURGERIES CATARACT EXTRACTION 2021 BREAST BIOPSY 07/08/2025 Left BREAST LUMPECTOMY 08/03/2025 Left Medical History Medical History Date Comments Hyperlipidemia Anxiety after husbands p assing in 05/2014 Hearing loss Pulmonary emphysema COPD (chronic obstructive pu lmonary disease) Arthritis Abnormal mammogram 08/27/2023 Allergy to environmental factors 03/06/2023 Macular degeneration Multiple environmental allergies 06/15/2024 Cigarette nicotine dependenc e in remission 06/15/2024 Depression Cataract 2020 Emphysema of lung Chronic bronchitis (HCC) Cancer (HCC) 07/09/25 Breast cancer (HCC) Family History Medical History Relation Name Comments Cancer Brother Melanoma Brother COPD Father Emphysema Father Hearing loss Father Heart disease Father Hypertension Maternal Grandmother Stroke Maternal Grandmother Colon cancer Mother Hearing loss Mother Heart disease Mother Mental illness Mother Relation Name Status Comments Brother Father Maternal Grandmother Mother Social History Tobacco Use Types Packs/Day Years Used Date Smoking Tobacco: Former Cigarettes 1.5 40 0 11/11/1965 - 2005 Smokeless Tobacco: Never Tobacco Cessation:Counseling Given: Not Answered PHQ-2 Answer Date Recorded PHQ-2 Total Score (If total score is 3 or more points, staff should administer the PHQ-9) 0 08/12/2025 AUDIT-C Answer Date Recorded Frequency of Alcohol Consumption Not on file 09/02/2025 Q2: How many drinks containi ng alcohol do you have on a typical day when you are drinking? Patient does not drink Frequency of Binge Drinking Not on file 08/12 Comments No Sex and Gender Information Value Date Recorded Sex Assigned at Not on file Legal Sex Female 1:07 AM MARKET GARDENER Gender Identity Not on file Sexual Orientation Not on file Obstetrics History Last Filed Vital Signs Vital Sign Reading Time Taken Comments Blood Pressure 122/66 09/02/2025 1:14 PM CDT Pulse 85 09/02/2025 1:14 PM CDT Temperature 36.3 C (97.3 F) 09/02/2025 1:14 PM CDT Respiratory Rate 18 09/02/2025 1:14 PM CDT Oxygen Saturation 97% 09/02/2025 1:14 PM CDT Inhaled Oxygen Concentration - - Weight 69.8 kg (153 lb 14.4 oz) 09/02/2025 1:14 PM CDT Height 152.4 cm (5') 09/02/2025 1:14 PM CDT Body Mass Index 30.06 09/02/2025 1:14 PM CDT Plan of Treatment Health Maintenance Due Date Last Done Comments Hepatitis B Screening 1963 DTaP/Tdap/Td Vaccine (1 - Tdap) 01/31/2005 5 Covid-19 Vaccine (2 6 season) 2025 07/26/2025, 08/06/2024, 08/15/2023, Additional history exists Depression Screening 08/12/2026 08/12/2025, 01/26/2025, 06/03/2024 Fall Risk Assessment 08/12/2026 08/12/2025, 01/26/2025, 06/03/2024 Well Visit 65+ 08/12/2026 08/12/2025 Osteoporosis Screening-Bone Density Scan 09/06/2027 09/06/2025, 06/15/2024, 06/14/2022 Zoster Vaccine Completed 02/15/2022, 08/12, 12/23/2010 Pneumococcal vaccine 65+ Completed 022, 09/04/2021, 2009, Additional history exists Influenza Vaccine Completed 07/27/2025, , 08/06/2024, Additional history exists Procedures Procedure Name Priority Date/Time Associated Diagnosis Comments DEXA AXIAL SKELETON BONE DENSITY 1 OR MORE SITES Schedule Routine, Read Routine (OP Routine) 09/06/2025 11:58 AM CDT EGFR Routine 08/12/2025 3:39 PM CDT Mixed hyperlipidemia LIPID PANEL Routine 08/12/2025 3:39 PM CDT Mixed hyperlipidemia TSH Routine 08/12/2025 3:39 PM CDT Mixed hyperlipidemia THYROID FUNCTION CASCADE Routine 08/12/2025 3:39 PM CDT Mixed hyperlipidemia COMPREHENSIVE METABOLIC PANEL Routine 08/12/2025 3:39 PM CDT Mixed hyperlipidemia CBC WITHOUT DIFFERENTIAL Routine 08/12/2025 3:39 PM CDT Mixed hyperlipidemia RADIOLOGIC EXAMINATION, SURGICAL SPECIMEN NON REPORTABLE Schedule Routine, Read Routine (OP Routine) 08/03/2025 US GUIDED BREAST BIOPSY LEFT Schedule Routine, Read Routine (OP Routine) 07/08/2025 3:46 PM CDT from Last 3 Months Results * Dexa Axial Skeleton Bone Density 1 or 2 Site (09/06/2025 11:58 AM CDT) Anatomical Region Laterality Modality Body N/A Radiographic Maranda ging Historical Provider MD LOU DXA PROCEDURES Final Result * eGFR (08/12/2025 3:39 PM CDT) eGFR 90 >=60 mL/min/1. 73 m2 Comment: Interpretive Data Reference Interval Normal >/= 90 mL/min/1.73m2 Mildly decreased* 60 - 89 mL/min/1.73m2 Mildly to moderately decreased 45 - 59 mL/min/1.73m2 Moderately to severely decreased 30 - 44 mL/min/1.73m2 Severely decreased 15 - 29 mL/min/1.73m2 Kidney Failure < 15 mL/min/1.73m2 *Relative to young adult level Estimated glomerular filtration rate is determined by the 2020 CKD-EPI equation recommended by the National Kidney Foundation (A Unifying Approach to GFR Estimation: Recommendations of the NKF-ASK Task Force on Reassessing the Inclusion of Race in Diagnosing Kidney Disease, JASN 2020). The CKD-EPI equation should not be used for patients with unstable renal function and has not been validated in children and those over 70. Current interpretive data was last reviewed 2021. Blood 08/12/2025 3:39 PM CDT 08/12/2025 6:08 PM CDT Carmen Edouard NP LAB BLOOD ORDERABLES Final Re sult [facility] [address] [facility] Department [place] [address] * Thyroid Function [place] (08/12/2025 3:39 PM CDT) Pathologist [facility] TSH 2.10 0.30 - 4.20 mcIUnit/mL Blood 08/12/2025 3:39 PM CDT 08/12/2025 6:08 PM CDT Carmen Edouard LACROSSE PLAYER LAB BLOOD ORDERABLES Final Re sult Performing Organization Address City/[facility]/ZIP Co de Phone Number [address] [employer] [place], [place] [id number] * (ABNORMAL) CBC without differential (08/12/2025 3:39 PM CDT) [facility] WBC 6.32 3.80 - 9.90 K/cumm Hgb 12.5 11.9 - 15.5 g/dL [facility] Hct 39.0 35.6 - 45.5 % [facility] Plt 243 150 - 400 K/cumm [facility] MPV 10.3 9.1 - 12.3 fL [facility] RBC 4.56 3.90 - 5.20 M/cumm [facility] MCV 85.5 81.3 - 96.4 fL [facility] MCH 27.4 27.1 - 33.3 pg [facility] MCHC 32.1(L) 32.3 - 35.7 g/dL [facility] RDW CV 13.5 11.1 - 14.9 % [facility] RDW SD 42.5 35.7 - 48.1 fL [facility] NRBC abs 0.00 0.00 - 0.01 K/cumm [facility] Blood 08/12/2025 3:39 PM CDT 08/12/2025 6:12 PM CDT Carmen Edouard LACROSSE PLAYER LAB BLOOD ORDERABLES Final Re sult Performing Organization Address City/[facility]/ZIP Co de Phone Number [address] [employer] [place], [place] [id number] * TSH (08/12/2025 3:39 PM CDT) [facility] Thyroid Stimulating Hormone 2.10 0.30 - 4.20 mcIUnit/mL Blood 08/12/2025 3:39 PM CDT 08/12/2025 6:08 PM CDT Carmen Edouard LACROSSE PLAYER LAB BLOOD ORDERABLES Final Re sult [facility] [address] [facility] Department [place] [address] * Lipid panel (08/12/2025 3:39 PM CDT) Cholesterol 171 30 - 199 mg/dL Comment: Interpretive Data Ages < or = 19 years Acceptable: <170 mg/dL Borderline high: 170-199 mg/dL High: >or= 200 mg/dL Ages > or = 20 years Desirable: <200 mg/dL Borderline high: 200-239 mg/dL High: >or= 240 mg/dL Literature References: 1. Expert Panel on Integrated Guidelines for Cardiovascular Health and Risk Reduction in Children and Adolescents. Pediatrics 2011;128:S213 2. NCEP Expert Panel. Circulation 2004;110:227 Current Interpretive Data was last revised on 2018. Triglycerides 66 <=149 mg/dL [facility] Comment: Interpretive Data Ages < or = 9 years Acceptable: <75 mg/dL Borderline high: 75-99 mg/dL High: >or= 100 mg/dL Ages 10 to 20 years Acceptable: <90 mg/dL Borderline high: 90-129 mg/dL High: >or= 130 mg/dL Ages > or = 20 years Desirable: <150 mg/dL Borderline high: 150-199 mg/dL High: 200-499 mg/dL Very high: >or= 499 mg/dL Literature References: 1. Expert Panel on Integrated Guidelines for Cardiovascular Health and Risk Reduction in Children and Adolescents. Pediatrics 2011;128:S213 2. NCEP Expert Panel. Circulation 2004;110:227 Current Interpretive Data was last revised on 2018. HDL 56 >=40 mg/dL [facility] Comment: Interpretive Data Ages < or = 19 years Acceptable: >45 mg/dL Borderline low: 40-45 mg/dL Low: <40 mg/dL Ages > or = 20 years Desirable: >or= 60 mg/dL Low: <40 mg/dL Literature References: 1. Expert Panel on Integrated Guidelines for Cardiovascular Health and Risk Reduction in Children and Adolescents. Pediatrics 2011;128:S213 2. NCEP Expert Panel. Circulation 2004;110:227 Current Interpretive Data was last revised on 2018. LDL, calculated 102 <=129 mg/dL [facility] ECKERT Comment: Interpretive Data Ages < or = 19 years Acceptable: <110 mg/dL Borderline high: 110-129 mg/dL High: >or= 130 mg/dL Ages > or = 20 years Optimal: <100 mg/dL Near optimal: 100-129 mg/dL Borderline high: 130-159 mg/dL High: >160 mg/dL Calculated using the Gilberto LDL-C estimating equation. This equation was implemented on 2024. Prior to this date LDL-C was estimated using the Friedewald equation. Literature References: 1. Expert Panel on Integrated Guidelines for Cardiovascular Health and Risk Reduction in Children and Adolescents. Pediatrics 2011;128:S213 2. NCEP Expert Panel. Circulation 2004;110:227 3. Gilberto Wright et al. CHUN Cardiol. 2019March 11;5(5):540-548. doi: 10.1001/jamacardio.2020.0013 Current Interpretive Data was last revised on 2024. Non-HDL Cholesterol 115 mg/dL [facility] ECKERT Comment: Interpretive Data Ages < or = 19 years Acceptable: <120 mg/dL Borderline high: 120-144 mg/dL High: >145 mg/dL Ages > or = 20 years When triglycerides are >200 mg/dL, Non-HDL cholesterol is a secondary target of therapy with treatment goals that are 30 mg/dL greater than the LDL cholesterol target. Literature References: 1. Expert Panel on Integrated Guidelines for Cardiovascular Health and Risk Reduction in Children and Adolescents. Pediatrics 2011;128:S213 2. NCEP Expert Panel. Circulation 2004;110:227 Current Interpretive Data was last revised on 2018. Chol/HDL ratio 3 [facility] ECKERT Blood 08/12/2025 3:39 PM CDT 08/12/2025 6:08 PM CDT Carmen Edouard NP LAB BLOOD ORDERABLES Final Re sult [facility] [address] [facility] Department [place] [address] * Comprehensive metabolic panel (08/12/2025 3:39 PM CDT) Sodium 139 135 - 145 mmol/L Potassium, pl 4.7 3.3 - 4.9 mmol/L [facility] Chloride 104 97 - 110 mmol/L [facility] CO2 25 22 - 32 mmol/L [facility] Anion gap 10 2 - 15 mmol/L [facility] BUN 18 6 - 25 mg/dL [facility] Creatinine 0.63 0.60 - 1.10 mg/dL [facility] Glucose 97 70 - 199 mg/dL [facility] Comment: Interpretive Data Fasting glucose >/= 126 mg/dl is diagnostic for diabetes. Fasting is defined as no caloric intake for at least 8 hours. Fasting glucose between 100 mg/dl to 125 mg/dl is diagnostic of prediabetes. In a patient with classic symptoms of hyperglycemia or hyperglycemic crisis, a random glucose >/= 200 mg/dl is diagnostic for diabetes. In the absence of unequivocal hyperglycemia, results should be confirmed by repeat testing. The classification and Diagnosis of Diabetes Diabetes Care 2021; 46: S19-S40. Current interpretive data was last revised 2022. Calcium 9.2 8.5 - 10.3 mg/dL [facility] Bilirubin, total 0.3 0.1 - 1.2 mg/dL [facility] Protein, pl 6.8 6.5 - 8.5 g/dL [facility] Albumin 4.0 3.5 - 5.0 g/dL [facility] Alk phos 56 40 - 130 Units/L [facility] ALT 12 7 - 45 Units/L [facility] AST 28 10 - 45 Units/L [facility] Blood 08/12/2025 3:39 PM CDT 08/12/2025 6:08 PM CDT Carmen Edouard NP LAB BLOOD ORDERABLES Final Re sult Performing Organization Address City/[facility]/ZIP Co de Phone Number [facility] [address] [facility] Department [place] [address] * RADIOLOGIC EXAMINATION, SURGICAL SPECIMEN NON Reportable (08/03/2025) Anatomical Region Laterality Modality Breast N/A Mammography Historical Provider MD LOU MAMMO PROCEDURES Autumn l Result * US Guided Breast Biopsy Left (07/08/2025 3:46 PM CDT) Anatomical Region Laterality Modality Breast Left Mammography Historical Provider MD LOU MAMMO PROCEDURES Autumn l Result from Last 3 Months Insurance MEDICARE [facility] Care Teams Glass Presser Relationship Specialty Start Date End Date Carmen Edouard NP [address] [place], [place] [phone] PCP - General Family Medicine 01/26/25 Leif Haddad MD [address] [facility] [address] [facility] [address] [place] [address] Referring Physician Obstetrics and Gynecology 06/03/24 Shemar Dobbins MD [address] [place] [address] [address] [place] [address] Consulting Physician Pulmonary Disease 06/03/24
--- OUTSIDE RECORDS SUMMARY | 2025-09-09 13:12 | XMS_ITS | Clinical Summary ---
Author Organization [facility] Address [address] [facility] [address] [place] [address] Care Team Providers Care Theater Set Production Designer Name Role Phone Unavailable Primary Care Provider [...] mcg/actuation Mist 2 Puffs daily. Activ e tamoxifen (NOLVADEX) 20 mg tablet Take 1 Tablet (20 mg) by mouth daily. 90 Tablet 2 Active Active Problems No known active problems Encounters Date Type Department Care Team Description 09/02/2025 Orders Only [facility] Oncology and Hematology [address] [address] [place] [address] Rakesh Núñez MD 09/01/2025 4:30 PM CDT Telephone Check Up [facility] Oncology and Hematology [facility] [address] [place] [address] Rakesh Núñez MD Malignant neoplasm of left breast in female, estrogen receptor positive, unspecified site of breast (CMS/HCC) (Primary Dx) 08/31/2025 External Device Data STL ABSTRACTION Provider, Abstract 08/24/2025 External Device Data STL ABSTRACTION Provider, Abstract 08/05/2025 Orders Only [facility] Oncology [facility] [address] [place] [address] Rakesh Núñez MD 08/04/2025 3:00 PM CDT Office Visit [facility] Oncology [place] [address] [place] [phone] Rakesh Núñez MD Malignant neoplasm of left breast in female, estrogen receptor positive, unspecified site of breast (CMS/HCC) (Primary Dx); Osteopenia of multiple sites 07/23/2025 Abstract [facility] Oncology [facility] [address] [place] [address] Rakesh Núñez MD from Last 3 Months [...] Care Team (Late st Contact Info) Description 11/15/2025 11:15 AM SAFETY DEPOSIT SUPERVISOR Office Visit [facility] Oncology and Hematology - [place] [address] [facility] [address] [place] [address] Rakesh Núñez MD [address] [facility] [address] [place] [address] Health Maintenance Due Date Last Done Comments DTAP/TDAP/TD VACCINES (1 - Tdap) 1964 OSTEOPOROSIS SCREENING 2009 ZOSTER VACCINE Completed 02/15/2022, 09/04/2021 PNEUMOCOCCAL VACCINE 50+ YEARS Completed 09/04/2022 , 09/04/2021 RSV VACCINE (60+ or ) Completed 07/25/2023 INFLUENZA VACCINE Completed 07/27/2025, , 08/15/2023, Additional history exists Procedures Procedure Name Priority Date/Time Associated Diagnosis Comments NM BONE DENSITY Routine 08/31/2025 8:21 AM CDT CHG CA 15 3 Routine 08/04/2025 3:35 PM CDT COMPREHENSIVE METABOLIC PANEL Routine 08/04/2025 10:39 AM CDT CBC WITH AUTODIFFERENTIAL Routine 2024 10:34 AM CDT from Last 3 Months Results * NM BONE DENSITY (08/31/2025 8:21 AM CDT) Anatomical Region Laterality Modality Nuclear Medicine us Rakesh Núñez MD NM ORDERABLES Final Result * CHG CA 15 3 (08/04/2025 3:35 PM CDT) us Rakesh Núñez MD CHG - LABORATORY Final Result * COMPREHENSIVE METABOLIC PANEL (08/04/2025 10:39 AM CDT) Blood Rakesh Núñez MD CHEMISTRY ORDERABLES Final Resu lt * CBC WITH AUTODIFFERENTIAL (08/04/2025 10:34 AM CDT) Blood Rakesh Núñez MD HEMATOLOGY ORDERABLES Final Res ult from Last 3 Months Insurance RX [facility] [employer] [facility] MEDICARE PART A AND B [facility]
--- OUTSIDE RECORDS SUMMARY | 2025-09-09 13:12 | XMS_ITS | Patient Health Record ---
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 Name Role Phone Edouard, Carmen Primary Care Provider UnavailElie Carrillo Unavailable [phone] Alanis Vera Unavailable Unavailable Paula Del Angel Unavailable [phone] Allergies Allergen (clinical drug ingredient) Drug/Non Drug Allergy documented on EMR Reaction Allergy Type Onset Date Status codeine Codeine vomiting Drug Allergy Active Results Component Value Reference Range Notes Spirometry Reviewed date:08/19/2025 02:35:58 PM Interpretation:Abnormal Performing Lab: Notes/Report: Abnormal Reason For Referral No Information Medications Medication SIG (Take, Route, Frequency, Duration) Notes Start Date End Date Status Atorvastatin Calcium *Please review and pick correct strength-formula tion from Medispan options. If intended option is not shown, discontinue and re-order from Quick Search* Active EPINEPHRINE AUTO-INJECTOR 0.3 MG DIRECTED INTRAMUSCULARLY ONCE; Duration: 30 DAY(S) *Please review for potential replacement for e-prescription and drug interaction check* 06/18/2023 Active FLUTICASONE NASAL 50 mcg/inh 2 spray(s) in each nostril BID; Duration: 30 day(s) Not-Taking Sertraline HCl *Please review and pick correct strength-formula tion from Medispan options. If intended option is not shown, discontinue and re-order from Quick Search* Active FAMOTIDINE 40 mg 1 tab(s) orally 30 mins prior to SCIT; Duration: 30 days 08/13/2023 Not-Taking Fluticasone Propionate 50 MCG/ACT 2 spray(s) in each nostril BID; Duration: 30 day(s) Not-Taking Spiriva HandiHaler *Please revie w and pick correct strength-formula tion from [employer] options. If intended option is not shown, discontinue and re-order from Quick Search* Active CETIRIZINE 10 mg 1 tab(s) orally once a day; Duration: 30 days Not-Taking SPIRIVA Active FLUTICASONE NASAL 50 mcg/inh 2 spray(s) in each nostril BID; Duration: 30 day(s) Active NASAL WASHES N/A as directed intranasally as needed; Duration: 30 Active ATORVASTATIN Active CETIRIZINE 10 mg 1 tab(s) orally once a day; Duration: 30 days Active ALBUTEROL (EQV-PROAIR HFA) 90 mcg/inh 2 puff(s) inhaled every 6 hours; Duration: 30 days Active SERTRALINE Active Famotidine 40 mg 1 tab(s) orally 30 mins prior to SCIT; Duration: 30 days 08/13/2023 Active Triamcinolone Acetonide 0.1 % 1 lakesha applied topically 3 times a day; Duration: 7 days Not-Taking Cetirizine HCl 10 MG 1 tab(s) orally once a day; Duration: 30 days Active FAMOTIDINE 40 mg 1 tab(s) orally 30 mins prior to SCIT; Duration: 30 days 08/13/2023 Active TRIAMCINOLONE ACETONIDE TOPICAL 0.1% 1 lakesha applied topically 3 times a day; Duration: 30 days 02/03/2024 Not-Taking Triamcinolone Acetonide 0.1 % 1 lakesha applied topically 3 times a day; Duration: 30 days 02/03/2024 Active TRIAMCINOLONE TOPICAL 0.1% 1 lakesha applied topically 3 times a day; Duration: 7 days Not-Taking Social History Tobacco Use: Social History Observation Description Date Details (start date - stop date) Never Smoker NA - NA Sex Assigned At : Social History Observation Description Sex Assigned At Female Tobacco Control (Standard) Question Answer Notes Tobacco use: Nonsmoker AUDIT-C (Standard) Question Answer Notes Did you have a drink contain ing alcohol in the past year? Yes How often did you have a dri nk containing alcohol in the past year? Never (0 point) How many drinks did you have on a typical day when you were drinking in the past year? 1 or 2 drinks (0 point) How often did you have six o r more drinks on one occasion in the past year? Never (0 point) Points 0 Interpretation Negative Problems Problem Type SNOMED Code ICD Code Onset Dates Problem Status W/U Status Risk Notes Problem Chronic allergic conjunctivitis (25855761) Other chronic allergic conjunctivitis (H10.45) Active confirmed Problem Allergic rhinitis caused by pollen (disorder) (57513583) Allergic rhinitis due to pollen (J30.1) Active confirmed Problem Allergic rhinitis caused by animal hair and dander (591920877878629) Allergic rhinitis due to animal (cat) (dog) hair and dander (J30.81) Active confirmed Problem Allergic rhinitis (62478756) Other allergic rhinitis (J30.89) Active confirmed Problem Chronic obstructive pulmonary disease (14767692) Chronic obstructive pulmonary disease, unspecified (J44.9) Active confirmed Problem Allergic rhinitis caused by pollen (disorder) (96610868) Allergic rhinitis due to pollen (J30.1) Active confirmed Problem Allergic rhinitis caused by animal hair and dander (120645956127509) Allergic rhinitis due to animal (cat) (dog) hair and dander (J30.81) Active confirmed Problem Allergic rhinitis (12021656) Other allergic rhinitis (J30.89) Active confirmed Problem Chronic allergic conjunctivitis (06764724) Other chronic allergic conjunctivitis (H10.45) Active confirmed Problem Chronic cough (80026336) Chronic cough (R05.3) Active confirmed Vital Signs Respiratory Rate 17 /min 08/19/2025 Oximetry 96 % 08/19/2025 Blood pressure diastolic 81 mm Hg 08/19/2025 Height 60 in 08/19/2025 Blood pressure systolic 132 mm Hg 08/19/2025 Weight 151.8 lbs 08/19/2025 BMI 29.64 kg/m2 08/19/2025 Encounters Encounter Location Date Provider Diagnosis [facility] [address] [place] [address] 12/24/2024 Elie Giron Allergic rhinitis du e to pollen J30.1 ; Other allergic rhinitis J30.89 ; Allergic rhinitis due to animal (cat) (dog) hair and dander J30.81 and Other chronic allergic conjunctivitis H10.45 [facility] [address] [place] [phone] 12/15/2024 Elie Giron Allergic rhinitis du e to pollen J30.1 ; Other allergic rhinitis J30.89 ; Allergic rhinitis due to animal (cat) (dog) hair and dander J30.81 and Other chronic allergic conjunctivitis H10.45 [facility] [address] [place] [phone] 11/24/2024 Elie Giron Allergic rhinitis du e to pollen J30.1 ; Other allergic rhinitis J30.89 ; Allergic rhinitis due to animal (cat) (dog) hair and dander J30.81 and Other chronic allergic conjunctivitis H10.45 [facility] [address] [place] [phone] 2024 Elie Giron Allergic rhinitis du e to pollen J30.1 ; Other allergic rhinitis J30.89 ; Allergic rhinitis due to animal (cat) (dog) hair and dander J30.81 and Other chronic allergic conjunctivitis H10.45 [facility] [address] [place] [phone] 09/15/2024 Eile Giron Allergic rhinitis du e to pollen J30.1 ; Other allergic rhinitis J30.89 ; Allergic rhinitis due to animal (cat) (dog) hair and dander J30.81 and Other chronic allergic conjunctivitis H10.45 [facility] [address] [place] [phone] 07/20/2025 Elie Giron Allergic rhinitis du e to pollen J30.1 ; Other allergic rhinitis J30.89 ; Allergic rhinitis due to animal (cat) (dog) hair and dander J30.81 and Other chronic allergic conjunctivitis H10.45 [facility] [address] [place] [phone] 06/17/2025 Elie Giron Allergic rhinitis du e to pollen J30.1 ; Other allergic rhinitis J30.89 ; Allergic rhinitis due to animal (cat) (dog) hair and dander J30.81 and Other chronic allergic conjunctivitis H10.45 [facility] [address] [place] [phone] 05/20/2025 Elie Giron Allergic rhinitis du e to pollen J30.1 ; Other allergic rhinitis J30.89 ; Allergic rhinitis due to animal (cat) (dog) hair and dander J30.81 and Other chronic allergic conjunctivitis H10.45 [facility] [address] [place] [phone] 04/22/2025 Elie Giron Allergic rhinitis du e to pollen J30.1 ; Other allergic rhinitis J30.89 ; Allergic rhinitis due to animal (cat) (dog) hair and dander J30.81 and Other chronic allergic conjunctivitis H10.45 [facility] [address] [place] [phone] 03/25/2025 Elie Giron Allergic rhinitis du e to pollen J30.1 ; Other allergic rhinitis J30.89 ; Allergic rhinitis due to animal (cat) (dog) hair and dander J30.81 and Other chronic allergic conjunctivitis H10.45 [facility] [address] [place] [phone] 02/25/2025 Elie Giron Allergic rhinitis du e to pollen J30.1 ; Other allergic rhinitis J30.89 ; Allergic rhinitis due to animal (cat) (dog) hair and dander J30.81 and Other chronic allergic conjunctivitis H10.45 [facility] [address] [place] [phone] 01/28/2025 Elie Giron Allergic rhinitis du e to pollen J30.1 ; Other allergic rhinitis J30.89 ; Allergic rhinitis due to animal (cat) (dog) hair and dander J30.81 and Other chronic allergic conjunctivitis H10.45 [facility] [address] [place] [phone] 12/31/2024 Elie Giron Allergic rhinitis du e to pollen J30.1 ; Other allergic rhinitis J30.89 ; Allergic rhinitis due to animal (cat) (dog) hair and dander J30.81 and Other chronic allergic conjunctivitis H10.45 [facility] [address] [place] [address] 08/19/2025 Paula Young Allergic rhinitis du e to pollen J30.1 ; Allergic rhinitis due to animal (cat) (dog) hair and dander J30.81 ; Other allergic rhinitis J30.89 ; Other chronic allergic conjunctivitis H10.45 ; Chronic cough R05.3 and Chronic obstructive pulmonary disease, unspecified J44.[address] [address] 07/20/2025 Elie Giron Assessments Encounter Date Diagnosis (ICD Code) Assessment Notes Treatment Notes Treatment Clinical Notes Section Notes 09/15/2024 Allergic rhinitis due to pollen (ICD-10 [...] 07/20/2025 Other allergic rhinitis (ICD-10 - J30.89) 08/19/2025 Allergic rhinitis due to pollen (ICD-10 - J30.1) Tarah clearly suffers from atopic disease based upon our skin testing and clinical history. Accordingly, we have introduced a new, aggressive medication regimen, discussed nasal washes and allergy-specific avoidance measures. Her lung function has drastically declined since her last visit in 2022. Spirometry is now showing FEV1 ~1 L. She also on oxygen therapy. Her breathing unfortunatley is a contraindication for continuing immunotherapy. Mutually agreed to stop shots today. She also wants to focus on radiation therapy for BC. I did discuss options for her COPD including Dupixent. I like to check labs before starting. She would like to discuss this with Alanis Vera of Pulmonary 08/19/2025 Allergic rhinitis due to animal (cat) (dog) hair and dander (ICD-10 - J30.81) Follow allergen avoidance, meds and hold SCIT 08/19/2025 Other allergic rhinitis (ICD-10 - J30.89) Follow allergen avoidance, meds and hold SCIT 07/20/2025 Allergic rhinitis due to animal (cat) [...] hair and dander (ICD-10 - J30.81) 09/15/2024 Other chronic allergic conjunctivitis (ICD-10 - [...] Other chronic allergic conjunctivitis (ICD-10 - H10.45) 08/19/2025 Other chronic allergic conjunctivitis (ICD-10 - H10.45) Given ocular signs and symptoms I encouraged allergy avoidance measures and meds as above. If symptoms persist, consider adding additional medications including intraocular antihistamine/mast cell stabilizer, PRN and hold SCIT 08/19/2025 Chronic cough (ICD-10 - R05.3) Tarah still experiences seasonal shortness of breath, cough and wheezing. Followed by COLLEEN Vera with pulmonology for management of COPD. She is on Spiriva daily, also uses 2 L oxygen at night. She carries a rescue inhaler but has never used it. She is a previous smoker with a [id number] history, stopped smoking 17 years ago. Spirometry at initilal visit showed decreased FEV1, FVC and FEV1%, s/p RANJIT did not show reversibility. As FEV1 1 is trending lower, immunotherapy needs to be held. Discussed starting Dupixent but would like to discuss with Pulmonary 08/19/2025 Chronic obstructive pulmonary disease, unspecified (ICD-10 - J44.9) See plan above, Miahs COPD is managed by COLLEEN Vera with [facility] Plan Of Treatment No Information Insurance Providers Payer Name Payer Address Payer Phone Subscriber Number Group Number Insured Name Patient Relationship to Insured Coverage Start Date Coverage End Date [employer] (Medicare) Attention Claims [address] [place] [address] [id number] Tarah Fitzpatrick Self - patient is the insured [facility] [address] [place] [address] [id number] Tarah Fitzpatrick Self - patient is the insured Medical (General) History Medical History History ICD Code Hypercholesterolemia COPD Malignant neoplasm of unspecified site o f unspecified female breast C50.919 Surgical History Surgery Date(Month/Year) lumpectomy 07/2025 Hospitalization History Reason Date(Month/Year)
--- NOTE | 2025-09-09 15:14 | WPDPFTINT ---
PFT Procedure Performed PFT Procedure Performed Plethysmography (Lung Vol) Diffusing Cap (DLCO) Flow Vol Loop Spirometry w/o Bronchodil PFT Interpretation This is a pulmonary function test with spirometry, plethysmography and diffusing capacity. The test was performed and results interpreted in accordance with the 2019 and 2005 ATS/ERS Task Force guidelines respectively using the Global Lung Function Initiative-2012 reference equations. Patient demonstrated good effort and cooperation. Reproducibility criteria were met. The quality of the spirometry maneuver was Grade A. Findings: Spirometry: There is decreased maximal expiratory airflow at all lung volumes with a concave expiratory flow tracing. The contour the inspiratory flow tracing is normal. The FVC is 1.78 L, 81% predicted. The FEV1 is 1.10 L, 65% predicted. The FEV1: FVC ratio 62%. Plethysmography: The total lung capacity is 5.07 L, 114% predicted. The functional residual capacity is 2.77 L, 109% predicted. The residual volume is 2.76 L, 126% predicted. Diffusing capacity: The diffusing capacity unadjusted for hemoglobin and carboxyhemoglobin is 9.9, 56% predicted. The diffusing capacity adjusted for alveolar volume is 2.65, 62% predicted. In comparison to previous pulmonary function testing on 02/06/2023 the FVC has decreased from 2.38 to 1.75. The FEV1 is decreased from 1.36 L to 1.10 L. The total lung capacity is unchanged from 5.02 L to 5.07 L. The functional residual capacity is unchanged from 3.18 L to 2.77 L. The residual volume is unchanged from 2.44 L to 2.76 L. The diffusing capacity unadjusted for hemoglobin and carboxyhemoglobin is decreased from 21.4 to 9.9. The diffusing capacity adjusted for alveolar volume is decreased from 3.45 to 2.65. Impression: There is a moderate obstructive abnormality. The lung volumes are normal. The diffusing capacity unadjusted for hemoglobin and carboxyhemoglobin is moderately decreased and remains mildly decreased when adjusted for alveolar volume. In comparison to previous pulmonary function testing on 02/06/2023, there has been a greater than anticipated time dependent decrease in the FVC, FEV1, and diffusing capacity with no significant change in the total lung capacity, functional residual capacity or residual volume. Clinical correlation is recommended.
== END 2025-09-09 12:38 | disposition home or self-care (01) ==
PROVIDERS: PCP Nurse Practitioner Family; Visit Provider Nurse Practitioner
DX: J44.9 Chronic obstructive pulmonary disease, unspecified (principal)
CPT/HCPCS: 94375; 94726; 94729